=== PATIENT | female | born 1955 | race Caucasian/White ===

== ENCOUNTER → 2024-08-11 10:34 | Outpatient (REF) | payer MEDICARE, OTHER, SELFPAY | LOC: HWWDC 10:34 | DX: Z12.31 Encounter for screening mammogram for malignant neoplasm of breast (principal) | CPT/HCPCS: 77063; 77067 ==

== ENCOUNTER → 2024-08-18 08:42 | Outpatient (REF) | payer MEDICARE, OTHER, SELFPAY | LOC: WDC 08:42 | DX: R92.8 Other abnormal and inconclusive findings on diagnostic imaging of breast (principal) | CPT/HCPCS: 76642 ==

== ENCOUNTER → 2024-08-24 09:02 | Outpatient (REF) | payer MEDICARE, OTHER, SELFPAY ==
--- NOTE | 2024-08-24 13:15 | OID.BR.INTR ---
KAYLEIGHD Breast Navigator - Initial
- -
Date of Contact: 08/24/24
Met with patient. Patient given written information on navigator service available at [facility]. Will follow up as needed per protocol.
== END ==
LOC: WDC 09:02
DX: N63.10 Unspecified lump in the right breast, unspecified quadrant (principal); N63.11 Unspecified lump in the right breast, upper outer quadrant
CPT/HCPCS: 88305; 19083; 88341; 88360; A4648

== ENCOUNTER → 2024-09-10 07:45 | Outpatient (REF) | payer MEDICARE, OTHER, SELFPAY | LOC: WDC 07:45 | PROVIDERS: ATTENDING PHYSICIAN Surgery | DX: C50.411 Malignant neoplasm of upper-outer quadrant of right female breast (principal) | CPT/HCPCS: 19281; 76942; A4648 ==

== ENCOUNTER 2024-09-11 06:18 | Day surgery (SDC) | payer MEDICARE, OTHER, SELFPAY ==
[2024-09-02 13:04] VITALS: BMI 23.4
[2024-09-11 09:38] VITALS: BP 127/73; BMI 23.4
[2024-09-11] MEDS: TYLENOL 1000 MG PO (09:45)
[2024-09-11] MEDS: NORMOSOL-R/PLASMALYTE-A 1000 IV (09:50)
[2024-09-11] MEDS: LOVENOX 40 MG SC (12:04)
[2024-09-11 14:00] VITALS: BP 115/68
[2024-09-11 14:15] VITALS: BP 131/75
[2024-09-11 14:30] VITALS: BP 125/69
[2024-09-11 14:45] VITALS: BP 127/67
--- NOTE | 2024-09-24 07:49 | W.IMMPOSTOP ---
Surgical Immed Post Op Note
-
Primary Surgeon: Lalit
Assisting Surgeon: None
Pre-op Diagnosis: Right breast ca
Post-op Diagnosis: Right breast ca
Procedure Performed: Right localized lumpectomy and sentinel lymph node mapping and biopsy
Anesthesia Type: TIVA
Specimen / Cultures: Right lumpectomy, margins, sentinel nodes
Estimated Blood Loss: 4cc
Complications: None
Operative Findings: Neg nodes on frozen
--- NOTE | 2024-09-24 07:51 | OR.RPT ---
Operative Report
Operative Report
Date of surgery: 09/11/2024
Surgeon: Lalit
Procedure: Right localized lumpectomy and sentinel lymph node mapping and biopsy
Preop diagnosis: right breast carcinoma
Postop diagnosis: Right breast carcinoma
The patient is a 68-year-old female with image detected right breast carcinoma who presents for breast conservation surgery. On the day prior to the procedure she presented to the [facility] where she underwent Мария casino supervisor reflector
placement and technetium radiotracer injection. On the day of surgery she presented to same-day surgical services where she was prepped. She verified site and procedure DVT and antibiotic prophylaxis were provided.
Patient was taken to the operating room and in the supine position intravenous sedation was delivered. Right breast and axilla were prepped and draped in usual sterile fashion and all tissues were anesthetized with 1% lidocaine plain. Attention
was first turned to the axilla where a curvilinear incision was made inferior to the hairline overlying the area of highest external gamma count. Dissection was carried through clavipectoral fascia and using the neoprobe sentinel node packets were
encountered and excised. Feeding vessels were controlled with 3-0 silk tie and frozen section analysis of the nodes was negative. Hemostasis was verified Marcaine 0.5% plain was instilled and wound was closed using simple interrupted 3-0 plain on
deep intermediate and subcutaneous tissue and skin was closed with a running subcuticular 4-0 Monocryl.
Next attention was turned to the lumpectomy where a curvilinear incision was made in the appropriate area skin flaps were elevated and the Мария probe was used to localized the reflector signal. Wide lumpectomy was performed. Timeout the body was
noted and the specimen was oriented for the pathologist. Specimen radiography confirmed the presence of the reflector and clip within it. Additional margins were harvested for permanent analysis from the posterior, medial, superior, lateral,
inferior, and anterior dimensions. These were oriented as well.
This wound was closed in the same fashion as the axillary incision after Marcaine and hemoclips were applied. Sterile surgical glue and sterile compressive dressings were applied. All sponge needle and instrument counts were correct and patient
was transferred to same-day surgery in stable condition,
([id number])
Stratford Node Bx Breast Cancer
Stratford Node Bx Breast Cancer
Operation performed with curative intent: Yes
Tracer(s) to ID Stratford Nodes in Non-Neoadjuvant setting: Radioactive Tracer
Tracer(s) to ID Sentinal Nodes in the Neoadjuvant Setting: N/A
All nodes at end of dye-filled Lymphatic Channel removed: N/A
All Significantly Radioactive Nodes were removed: Yes
All Palpably Suspicious Nodes were Removed: Yes
Bx Proven Pos Nodes Marked Prior to Chemo ID'd & Removed: N/A
== END 2024-09-11 15:00 | disposition home or self-care (01) ==
LOC: SDS 06:18
PROVIDERS: ATTENDING PHYSICIAN Surgery
DX: C50.411 Malignant neoplasm of upper-outer quadrant of right female breast (principal)
CPT/HCPCS: 38525; 19301; 38900; 88305; 88307; 88332; 76098; 88331; 88342

== ENCOUNTER → 2024-10-12 11:11 | Outpatient (REF) | payer MEDICARE, OTHER, SELFPAY | LOC: HWRAD 11:11 | PROVIDERS: ATTENDING PHYSICIAN Internal Medicine Hematology & Oncology | DX: C50.919 Malignant neoplasm of unspecified site of unspecified female breast (principal) | CPT/HCPCS: 71046 ==

== ENCOUNTER → 2024-10-13 15:53 | Outpatient (REF) | payer MEDICARE, OTHER, SELFPAY | LOC: RCS 15:53 | PROVIDERS: ATTENDING PHYSICIAN Internal Medicine Hematology & Oncology | DX: C50.919 Malignant neoplasm of unspecified site of unspecified female breast (principal) | CPT/HCPCS: 93306; 93356 ==

== ENCOUNTER → 2024-10-14 11:30 | Outpatient (REF) | payer MEDICARE, OTHER, SELFPAY | LOC: HWRAD 11:30 | DX: E04.1 Nontoxic single thyroid nodule (principal) | CPT/HCPCS: 76536 ==

== ENCOUNTER 2024-10-27 06:40 | Day surgery (SDC) | payer MEDICARE, OTHER, SELFPAY ==
--- NOTE | 2024-10-27 08:49 | W.SUR.PREOP ---
Pre-Operative Surgical Note
-
I have examined this patient prior to the performance of the scheduled procedure.
The patient's condition is unchanged from the time of the current History and
Physical and the patient is able to undergo the scheduled procedure.
[2024-10-27] MEDS: NSS 1000 IV (08:51)
[2024-10-27 08:53] VITALS: BMI 25.1
[2024-10-27 08:56] VITALS: BP 139/71
[2024-10-27 10:31] VITALS: BP 109/62
[2024-10-27 10:45] VITALS: BP 114/53
--- NOTE | 2024-10-27 10:55 | W.IMMPOSTOP ---
Surgical Immed Post Op Note
-
Primary Surgeon: Lalit
Assisting Surgeon: None
Pre-op Diagnosis: Right breast carcinoma
Post-op Diagnosis: Same
Procedure Performed: Insertion left portacath
Anesthesia Type: TIVA
Specimen / Cultures: None
Estimated Blood Loss: 2cc
Complications: None
Operative Findings: None
--- NOTE | 2024-10-27 10:56 | OR.RPT ---
Operative Report
Operative Report
The patient is a 68-year-old female with HER2 positive right breast carcinoma who presents for left Port-A-Cath insertion for the administration of adjuvant chemotherapy
Date of surgery: 10/27/2024
Surgeon: Lalit
Pre-op diagnosis: Right breast carcinoma
Postop diagnosis: Same
Procedure insertion left Port-A-Cath
The patient was prepped in same-day surgical services suite. DVT and antibiotic prophylaxis as well as pre-emptive analgesia were provided. She was transported to the operating room and in Trendelenburg position with shoulder roll in place,
intravenous sedation was administered. The left chest and neck were prepped and draped in the usual sterile fashion. An appropriate timeout was performed by all staff members.
Tissues were anesthetized with 1% lidocaine plain. The left subclavian vein was entered percutaneously on the first attempt. The guidewire was advanced under fluoroscopic guidance into the superior vena cava and securely attached to the drapes
after the insertion needle was removed.
A subcutaneous pocket was fashioned sharply and with the cautery, inferior to the exit site of the wire. A single-lumen low-profile port flushed with heparinized saline was passed into the pocket and securely attached to the catheter. The catheter
was passed to the exit site of the guidewire. Under fluoroscopic guidance it was cut to a length of 21 cm. Under fluoroscopic guidance, the tract was dilated. Dilator and wire were removed and the catheter passed easily into the tear-away sheath
which was removed. Good position of the catheter tip in the superior vena cava was noted. The catheter aspirated and flushed well.
The patient was taken out of Trendelenburg position. Tissues were instilled with 0.5% Marcaine plain. The wound was closed using simple interrupted 3-0 plain on subcutaneous tissue and a running subcuticular 4 Monocryl was used on skin. Surgical
glue was applied. The port was accessed as the patient will be receiving her first treatment tomorrow. A sterile dressing was applied and the patient was transferred to same-day surgery where a stat portable chest x-ray will be obtained.
([id number])
[2024-10-27 11:00] VITALS: BP 108/68
== END 2024-10-27 11:41 | disposition home or self-care (01) ==
LOC: SDS 06:40
PROVIDERS: ATTENDING PHYSICIAN Surgery
DX: C50.911 Malignant neoplasm of unspecified site of right female breast (principal)
CPT/HCPCS: 36561; 71045; 76000; C1788

== ENCOUNTER → 2025-01-18 08:58 | Outpatient (REF) | payer MEDICARE, OTHER, SELFPAY | LOC: RCS 08:58 | PROVIDERS: ATTENDING PHYSICIAN Internal Medicine Cardiovascular Disease | DX: Z85.3 Personal history of malignant neoplasm of breast (principal); Z98.890 Other specified postprocedural states; I10 Essential (primary) hypertension; I70.0 Atherosclerosis of aorta | CPT/HCPCS: 93306; 93356 ==

== ENCOUNTER 2025-01-29 07:20 | Inpatient (IN) | payer MEDICARE, OTHER, SELFPAY ==
[2025-01-28] VITALS (7 sets, daily range): BP systolic 114–139; BP diastolic 61–104; BMI 26.2; BMI 26.1
--- NOTE | 2025-01-28 14:38 | ED.GENMED ---
History of Present Illness
<Yancy Farr NP - Last Filed: 01/28/25 22:24>
General
Chief Complaint: Fall
Source: patient
Exam Limitations: none
Time Seen by Provider: 01/28/25 14:10
Nursing documentation reviewed up to this point in time: agreed with
History of Present Illness
History of Present Illness:
Patient to ED after trip and fall in parking lot. SHe was at the infusion center earlier to receive a dose of herceptin. States after leaving the hospital she tripped on curb and fell forward. SHe states she hit her forehead on pavement. No LOC.
SHe was assisted by bystanders until staff intervened, rapid response called. SHe denies any episodes of dizziness or weakness. Incident occured just [employer]. She reports HALEY that started a few weeks ago. No leg pain or swelling, no history of DVT.
Denies any CP/pressure. SHe was sent for CXR by Dr. Au but fell before she could get to xray. On 3L NC presently. PUlse ox 95%
Past History
<Yancy Farr [employer] - Last Filed: 01/28/25 22:24>
Past History
ED Past Medical History: Cancer (breast) and HTN
Social History
Tobacco: Former smoker (1ppd, quit 08/2024)
Review of Systems
<Yancy Farr [employer] - Last Filed: 01/28/25 22:24>
Review of Systems
Allergies reviewed?: Yes
All Other Systems: ROS reviewed and negative except as documented in HPI and ROS
Constitutional: Reports no symptoms
EENT: Reports no symptoms
Respiratory: Reports trouble breathing (HALEY)
Cardiac: Reports no symptoms
ABD/GI: Reports no symptoms
: Reports no symptoms
Musculoskeletal: Reports no symptoms
Skin: Reports no symptoms
Neurological: Reports no symptoms
Psychiatric: Reports no symptoms
Phy Exam
<Yancy Farr [employer] - Last Filed: 01/28/25 22:24>
General Physical Exam
General Presentation: moderate distress
General age: appears stated age
General Skin: warm and dry
General Habitus: normal
General Mental: alert
Pulmonary Exam
Pulmonary Exam: chest non tender
Oxygen Status: oxygen 3 liters via NC (Pulse ox 95%)
Breath Sounds: Crackles: left lower and right lower
Gastrointestinal Exam
Gastrointestinal Exam: non tender and soft
Neurological Exam
Neurological Exam: alert, oriented x3, CN II-XII intact, no motor deficits, no sensory deficits and speech normal
Musculoskeletal Exam
Musculoskeletal Exam: full ROM and neuro vasc intact
Skin Exam
Skin Exam: normal color, warm/dry and no rash
Psychiatric Exam
Psychiatric Exam: normal mood/affect
Course
<Yancy Farr [employer] - Last Filed: 01/28/25 22:24>
Orders/Labs/Results
Orders:
Orders
01/28/25 13:58
Electrocardiogram (*1) Urgent
Reason for Study: Chest Pain
EKG- Treatment ONCE
01/28/25 14:54
Complete Blood Count/With Diff Urgent
Comprehensive Metabolic Panel Urgent
D-Dimer Urgent
NT-proBNP Urgent
Comment: ADD ON
01/28/25 15:28
0.9% Sodium Chloride 1000 ml [Nss] 1,000 ml IV BOLUS
01/28/25 15:30
CT Head W/o Iv Contrast Urgent
Comment:
Reason For Exam: trauma
01/28/25 15:31
CT Chest PE Study Urgent
Comment:
Reason For Exam: HALEY, breast CA
01/28/25 17:57
Add On- LAB Urgent
Tests Added?: BNP
Abnormal Lab Results
01/28/25
14:54
RBC 3.59 L 10^6/uL
(4.20-5.40)
Hgb 10.7 L g/dL
(12.0-16.0)
Hct 31.1 L %
(37.0-47.0)
RDW 15.7 H %
(11.5-14.5)
Abs Immat Gran (auto) 0.3 H 10^3/uL
(0-0.05)
Absolute Monos (auto) 1.2 H 10^3/uL
(0.1-0.6)
Immature Gran % 3.8 H %
(0-0.5)
Monocytes % 13.3 H %
(1.7-9.3)
D-Dimer 1.25 H ug/mlFEU
(0.00-0.50)
Sodium 128 L mmol/L
(135-145)
Chloride 97 L mmol/L
(98-107)
Creatinine 0.5 L mg/dL
(0.6-1.0)
Glucose 140 H mg/dl
(70-99)
Total Protein 5.4 L g/dl
(6.3-8.2)
Albumin 3.1 L g/dl
(3.5-5.0)
01/28/25 14:54
01/28/25 14:54
Vital Signs
Initial and Last Documented VS:
Initial Vital Signs
Temp Pulse Resp BP Pulse Ox
98.7 F 115 15 138/75 85
01/28/25 13:52 01/28/25 13:52 01/28/25 13:52 01/28/25 13:52 01/28/25 13:52
Last Documented Vital Signs
Temp Pulse Resp BP Pulse Ox
98.0 F 100 18 138/64 92
01/28/25 20:50 01/28/25 20:50 01/28/25 20:50 01/28/25 20:50 01/28/25 20:50
<Negrito Mercedes, DO - Last Filed: 01/28/25 18:12>
Orders/Labs/Results
Orders:
Orders
01/28/25 13:58
Electrocardiogram (*1) Urgent
Reason for Study: Chest Pain
EKG- Treatment ONCE
01/28/25 14:54
Complete Blood Count/With Diff Urgent
Comprehensive Metabolic Panel Urgent
D-Dimer Urgent
NT-proBNP Urgent
Comment: ADD ON
01/28/25 15:28
0.9% Sodium Chloride 1000 ml [Nss] 1,000 ml IV BOLUS
01/28/25 15:30
CT Head W/o Iv Contrast Urgent
Comment:
Reason For Exam: trauma
01/28/25 15:31
CT Chest PE Study Urgent
Comment:
Reason For Exam: HALEY, breast CA
01/28/25 17:57
Add On- LAB Urgent
Tests Added?: BNP
Abnormal Lab Results
01/28/25
14:54
RBC 3.59 L 10^6/uL
(4.20-5.40)
Hgb 10.7 L g/dL
(12.0-16.0)
Hct 31.1 L %
(37.0-47.0)
RDW 15.7 H %
(11.5-14.5)
Abs Immat Gran (auto) 0.3 H 10^3/uL
(0-0.05)
Absolute Monos (auto) 1.2 H 10^3/uL
(0.1-0.6)
Immature Gran % 3.8 H %
(0-0.5)
Monocytes % 13.3 H %
(1.7-9.3)
D-Dimer 1.25 H ug/mlFEU
(0.00-0.50)
Sodium 128 L mmol/L
(135-145)
Chloride 97 L mmol/L
(98-107)
Creatinine 0.5 L mg/dL
(0.6-1.0)
Glucose 140 H mg/dl
(70-99)
Total Protein 5.4 L g/dl
(6.3-8.2)
Albumin 3.1 L g/dl
(3.5-5.0)
01/28/25 14:54
01/28/25 14:54
Vital Signs
Initial and Last Documented VS:
Initial Vital Signs
Temp Pulse Resp BP Pulse Ox
98.7 F 115 15 138/75 85
01/28/25 13:52 01/28/25 13:52 01/28/25 13:52 01/28/25 13:52 01/28/25 13:52
Last Documented Vital Signs
Temp Pulse Resp BP Pulse Ox
98.0 F 100 18 138/64 92
01/28/25 20:50 01/28/25 20:50 01/28/25 20:50 01/28/25 20:50 01/28/25 20:50
<Yancy Farr NP - Last Filed: 01/28/25 22:24>
*Radiology
Radiology exam reviewed: radiology read reviewed
*Pulse Oximetry
SaO2: 98
Nasal Cannula flow liters per minute: 84
Oxygen Mode of Delivery: Room air
Patient hypoxic: yes
Comment: 88% RA
*Critical Care Note
Total Time (30-74mins, 75-104mins- exclusive of procedures): Not Applicable
<Yancy Farr NP - Last Filed: 01/28/25 22:24>
Update Note
Update Note:
Pulse ox 95% on 3L NC. no history of lung disease. Reports HALEY x 2 weeks. No chest pain, no leg swelling. Ddimer elevated at 1.2, will send for Chest CT PE study.
Na 128. SHe reports history of low Na levels. Last level here 34. Will add liter NSS.
Chest CT neg for PE. Pulmonary edema vs pneumonia. No history of pulmonary edema in her past. No weight gain, no edema. BNP is pending. Reports non productive cough over the past 2 weeks. WIll start antibiotic in ED for possible pneumonia. HALEY
with minimal activiey. WIll admit to hospitalist for HALEY, hypoxemia, pneumonia
ED Attending Note
<Yancy Farr NP - Last Filed: 01/28/25 22:24>
-
Portions of this chart may have been created with voice recognition software.� Occasional wrong word or��sound alike� substitutions may have occurred due to the inherent limitations of voice recognition software.
<Negrito Mercedes DO - Last Filed: 01/28/25 18:12>
ED Attending Note
Patient seen and examined by attending physician: Yes
I performed the substantive portion of visit, reviewed & personally made and approve the management plan that is documented in note by myself or WILBER.: Yes
ED Attending Note:
I evaluated the patient at bedside. The patient is hypoxic with sat of 84% on 3 L/min and I increased her to 5 L/min. She reports no weight gain. CTA chest shows no PE but there is extensive diffuse patchy airspace opacity. She has had a
cough�Will add antibiotics. BNP pending
Discharge Plan
Departure
Patient Disposition: Admit
Date of Disposition: 01/28/25
Time of Disposition: 18:06
Presentation/result/management discussed w/ accepting MD/DO: Hospitalist
Patient with high blood pressure during this ER visit?: No
Condition: Fair
Covid-19: Not Applicable
Discharge Problem:
HALEY (dyspnea on exertion), Hypoxemia, Pneumonia
Interventions
Interventions:
*Risk Screen - Suicide Last Done: 01/28/25 13:52
*General Assessment Last Done: 01/28/25 13:52
*Neglect/Abuse Screening Last Done: 01/28/25 13:52
*ED- Fall Risk Assessment Last Done: 01/28/25 13:52
*ED COVID-19 Vaccine History Last Done: 01/28/25 13:52
*ED Influenza Vaccine History Last Done: 01/28/25 13:52
*Nursing Disposition Last Done: 01/28/25 20:26
ED- Neurological Assessment Last Done: 01/28/25 14:18
Discharge Date and Time
Discharge Date/Time: 01/28/25 20:26
[2025-01-28 15:03] LABS: Hematocrit 31.1 % (37.0-47.0); Hemoglobin 10.7 g/dL (12.0-16.0); Mean Corp Hgb Conc. 34.4 g/dL (33.0-37.0); Mean Corpuscular Volume 86.6 fL (81.0-99.0); Nucleated Red Blood Cells % 0 %; Platelet Count 301 10^3/uL (130-400); Red Cell Dist. Width 15.7 % (11.5-14.5)
[2025-01-28 15:20] LABS: ALT (SGPT) 22 U/L (0-35); AST (SGOT) 26 U/L (14-36); Albumin 3.1 g/dl (3.5-5.0); Alkaline Phosphatase 105 U/L (38-126); Blood Urea Nitrogen 8 mg/dl (7-17); Calcium 8.4 mg/dl (8.4-10.2); Carbon Dioxide 28 mmol/L (22-30); Chloride 97 mmol/L (98-107); Estimated Creatinine Clearance 68 ml/min; Glucose 140 mg/dl (70-99); Potassium 3.5 mmol/L (3.5-5.1); Sodium 128 mmol/L (135-145); Total Protein 5.4 g/dl (6.3-8.2); eGFR > 60.00
[2025-01-28 15:26] LABS: D-Dimer 1.25 ug/mlFEU (0.00-0.50)
[2025-01-28] MEDS: NSS 1000 IV (15:35)
[2025-01-28] MEDS: ZITHROMAX INFUSION 250 IV (18:20)
[2025-01-28] MEDS: ROCEPHIN 1000 MG IV (18:23)
--- NOTE | 2025-01-28 18:33 | HPS.HSE ---
Family Physician
-
Family Physician: TRE Porras
Chief Complaint
-
shortness of breath
History of Present Illness
69-year-old female past medical history of breast cancer, hypertension presenting with fall. She tripped and fell in the parking lot. He was at the infusion center earlier to receive a dose of Herceptin. After leaving the hospital she tripped on
a curb and fell forward. She hit her forehead on pavement. Denies loss of consciousness. She was assisted by bystanders until staff intervened and rapid response was called. She denies any dizziness or weakness.
She reports shortness of breath started few weeks ago with nonproductive cough. Denies leg pain or swelling. Denies chest pain. Denies fevers or chills.
Medical History
Past Medical History
Past Medical History: Reports Other (breast cancer, hypertension)
Past Surgical History: Reports None
Social History
Tobacco: Former Smoker
Alcohol: None
Drug: None
Family History
Family History: Not pertinent
Allergies / Home Medications
Allergies reflects when Allergies were last updated in [facility].
Home Medications with original date entered in [facility]
Allergy/Medication List:
Allergies
Allergy/AdvReac Type Severity Reaction Status Date / Time
No Known Allergies Allergy Verified 10/27/24 08:50
Home Medications
Vitamin C 1 dose PO DAILY 09/04/24
Vitamin D3 1 dose PO DAILY 09/04/24
amlodipine 5 mg tablet 5 mg PO QPM 09/04/24
cyanocobalamin (vitamin B-12) 1 dose PO DAILY 09/04/24
lisinopril 20 mg-hydrochlorothiazide 25 mg tablet 1 tab PO QPM 09/04/24
magnesium 1 dose PO DAILY 09/04/24
naproxen sodium 220 mg tablet (Aleve) 220 mg PO BID PRN pain 09/04/24
vitamin K 1 dose PO DAILY 09/04/24
zinc 1 dose PO DAILY 09/04/24
Review of Systems
-
History Source: Patient
A 12 point ROS was completed and negative except as noted: Yes
Constitutional: Reports No Symptoms
EENT: Reports No Symptoms
Respiratory: Reports No Symptoms
Cardiac: Reports No Symptoms
Abdomen/GI: Reports No Symptoms
: Reports No Symptoms
Musculoskeletal: Reports No Symptoms
Skin: Reports No Symptoms
Neurological: Reports No Symptoms
Endocrine: Reports No Symptoms
Hematologic/Lymphatic: Reports No Symptoms
Psych: Reports No Symptoms
Physical Exam
Vital Signs
Vital Signs
Temp Pulse Resp BP Pulse Ox
98.7 F 92 16 118/95 94
01/28/25 13:52 01/28/25 18:15 01/28/25 18:15 01/28/25 18:00 01/28/25 18:15
Physical Exam
General: Well Developed, Well Nourished and No Apparent Distress
HEENT: NormoCephalic, Moist mucous membranes and Atraumatic
Respiratory: Clear
Cardiac: S1/S2 and Regular Rhythm; No Murmur or Rub
GI: Soft, Non Tender, Non Distended and Normal Bowel Sounds; No Organomegaly
Rectal: Deferred by Provider
Musculoskeletal: No Clubbing, No Cyanosis and No Edema
Skin: No Rash
Neuro: Nonfocal/grossly intact
Laboratory Results
-
01/28/25 14:54
01/28/25 14:54
Laboratory Results
Total Bilirubin 0.5 mg/dl (0.2-1.3) 01/28/25 14:54
AST 26 U/L (14-36) 01/28/25 14:54
ALT 22 U/L (0-35) 01/28/25 14:54
Alkaline Phosphatase 105 U/L (38-126) 01/28/25 14:54
Data Reviewed
-
Lab Data: Labs Reviewed by me
Old Records: Reviewed
Impression/Plan
-
IMPRESSION:
PLAN:
# Acute hypoxemic respiratory insufficiency secondary to likely pneumonia
-D-dimer 1.25
-CT PE shows no evidence of pulmonary embolism, trace pleural effusions, extensive diffuse patchy and confluent airspace opacity noted bilaterally representing pulm edema versus pneumonia, mild bilateral hilar and mediastinal adenopathy
-Check COVID and influenza
-IV fluids given
- Ceftriaxone/azithromycin
# Mechanical fall with head injury
- CT head shows no acute intracranial abnormality
Breast cancer
Essential hypertension
- Continue amlodipine, lisinopril/hydrochlorothiazide
DNR/DNI
DVT prophylaxis�heparin
Regular diet
[2025-01-28 19:23] LABS: COVID-19 Antigen Negative (Negative)
[2025-01-28] MEDS: HEPARIN 5000 UNITS SC (21:56)
[2025-01-29 05:43] LABS: Hematocrit 27.7 % (37.0-47.0); Hemoglobin 9.5 g/dL (12.0-16.0); Mean Corp Hgb Conc. 34.3 g/dL (33.0-37.0); Mean Corpuscular Volume 87.9 fL (81.0-99.0); Nucleated Red Blood Cells % 0 %; Platelet Count 274 10^3/uL (130-400); Red Cell Dist. Width 16.0 % (11.5-14.5)
[2025-01-29 05:44] VITALS: BMI 24.4
[2025-01-29 05:49] LABS: ALT (SGPT) 18 U/L (0-35); AST (SGOT) 25 U/L (14-36); Albumin 2.7 g/dl (3.5-5.0); Alkaline Phosphatase 81 U/L (38-126); Blood Urea Nitrogen 8 mg/dl (7-17); Calcium 8.2 mg/dl (8.4-10.2); Carbon Dioxide 26 mmol/L (22-30); Chloride 104 mmol/L (98-107); Estimated Creatinine Clearance 68 ml/min; Glucose 99 mg/dl (70-99); Potassium 4.4 mmol/L (3.5-5.1); Sodium 132 mmol/L (135-145); Total Protein 4.9 g/dl (6.3-8.2); eGFR > 60.00
[2025-01-29 07:35] VITALS: BP 103/66
--- NOTE | 2025-01-29 07:39 | W.PN.HOSP.TC ---
Addendum entered and electronically signed by Jerome Rosas MD 01/29/25 21:10:
Attending Addendum-
I saw and evaluated the patient. I reviewed the resident�s note and agree with findings and plan as documented in the resident�s note. Sub: continues to feel SOB at rest. Worse when oxygen turned down. No fevers chills cough. Full 12 point ROS
reviewed and negative except as documented Exam: Vitals reviewed in chart GEN-NAD heart RRR lungs fine crackles at bases abd soft LE no edema
# Acute hypoxemic respiratory insufficiency
-unclear etiology possibly related to taxol or herceptin
-h/o heavy tobacco abuse- likely underlying COPD lungs with limited reserve - eventual PFTs as OP
-CT PE shows no evidence of pulmonary embolism, trace pleural effusions, extensive diffuse patchy and confluent airspace opacity noted bilaterally representing pulm edema versus pneumonia, mild bilateral hilar and mediastinal adenopathy
-COVID and influenza-neg
-DC IVF, give IV lasix x 1 for possible pulm vasc congestion - recent echo 01/18-WNL
-Ceftriaxone/azithromycin x 1 dose given
-check proclal
-wean for o2 88-92%
# Mechanical fall with head injury
- CT head shows no acute intracranial abnormality
#Breast cancer- cont Herceptin, completed treatment with taxol 01/14
# H/O Heavy Tobacco Abuse
- quit 1 year ago
- PFT's as OP
#Essential hypertension
- Continue amlodipine, lisinopril/hydrochlorothiazide
# Hyponatremia-mild
- improving s/p IVF
DNR/DNI
DVT prophylaxis�heparin
Regular diet
ACP
Patient consented to discuss, was alone, time spent explanation of advance directives, changes in health status, patient�s health care wishes if the patient becomes unable to make health decisions, goals of care, code status, and prognosis, confirms
understanding of DNR status- 16 minutes
Time spent coordinating care, review of plan of care with resident, personally reviewed previous records in EMR, med rec, labs, radiology, d/w nursing, family total time documented is exclusive of any additional time listed that was spent in advance
care planning discussion - 51 minutes
Original Note:
Today's Communication/Plan
-
Goal to wean new O2 requirement with goal Oxygen saturation >92%
One time dose IV Lasix 20mg
Assessment / Plan
Assessment / Plan
Assessment:
This is a 69 y/o female with pmhx of invasive ductal carcinoma of the breast (ER/NE positive, HER-2 positive) on active treatment, essential hypertension who presented to the ED following a fall and was found to be hypoxic with a new 6L O2
requirement
Plan:
Acute Respiratory Failure
-Patient with shortness of breath for the last 1.5-2 weeks, nonproductive cough
-Patient on 6L of O2 as of this admission, no supplemental oxygen requirement at baseline
-CT Chest PE on 01/28: No evidence of pulmonary embolism. Trace pleural effusions. Extensive diffuse patchy and confluent airspace opacity noted, bilaterally, most pronounced in the upper and mid lung zones, with relative sparing at the lung bases.
Pulmonary edema versus pneumonia. Mild bilateral hilar and mediastinal adenopathy.
-Patient had recently completed Taxol therapy on 01/14, concern for chemotherapy-induced lung injury
-Suspect chemotherapy-related lung injury
-Goal to wean Oxygen as tolerated, keeping oxygen saturation > 92%
-Ordered 1 time dose of IV Lasix 20mg
-Will monitor
Breast Cancer
-Patient with new diagnosis of invasive ductal carcinoma of the breast (ER/NE positive, HER-2 positive) on active treatment
-Follows with Dr. Espinosa at [facility], reportedly finished Taxol therapy on 01/14 and is continuing with Herceptin alone with most recent Herceptin infusion on 01/28 just before ED visit
-Encouraged follow up with Dr. Espinosa upon discharge from the hospital
-Will monitor
S/p Fall with Head Strike
-CT of the Head showed no acute intracranial abnormality.
-No complaints today
Essential Hypertension
-Continue home medications of amlodipine, lisinopril/hydrochlorothiazide
-Will monitor
Anticipated Discharge: 24 - 48 hours
Subjective/Interval History
-
Date of Service: January 29, 2025
Patient reports she is a patient of Dr. Espinosa at [facility]. She was diagnosed with breast cancer around June or July 2024, and was started on Taxol/Herceptin x12 rounds. She completed her final course of this regimen on 01/14,
after which she was continued on Herceptin alone every 3 weeks. Around 1.5 weeks ago, she began to feel short of breath with exertion and would cough when doing things like climbing the stairs. She has been free of fevers, chills, chest pain, or
productive cough. Dr. Espinosa had ordered her a chest X-ray a few days ago as she was worried that her shortness of breath could be a side effect of her medications. In particular, patient reports being concerned about heart failure or pulmonary
fibrosis.
She had just finished receiving an infusion on 01/28 when she accidentally tripped over the curb. She was started on Oxygen in the ED, which is a new requirement for her. She has no past medical history aside from essential hypertension and breast
cancer.
Objective Data
-
Labs:
Laboratory Results
01/29/25
03:57
WBC 8.2
Hgb 9.5 L
Hct 27.7 L
Plt Count 274
Sodium 132 L
Potassium 4.4 D
Chloride 104
Carbon Dioxide 26
BUN 8
Creatinine 0.5 L
Glucose 99
Calcium 8.2 L
Total Bilirubin 0.5
AST 25
ALT 18
Alkaline Phosphatase 81
Vital Signs:
Vital Signs
Temp Pulse Resp BP Pulse Ox
98.0 F 100 18 138/64 92
01/28/25 20:50 01/28/25 20:50 01/28/25 20:50 01/28/25 20:50 01/28/25 21:00
Review of Systems
-
History Source: Patient
Constitutional: Denies Fever, No Appetite, Fatigue, Chills or Weakness
Respiratory: Reports Cough and Trouble Breathing; Denies Wheezing
Cardiac: Denies Chest Pain
Abdomen/GI: Denies Abdominal Pain, Nausea, Vomiting, Diarrhea or Constipated
Neuro: Denies Dizzy, Headache, Weakness or Numbness
Physical Exam
-
General: Well Developed, Well Nourished, No Apparent Distress and Comfortable
HEENT: Normocephalic, Atraumatic and Oxygen (6L )
Respiratory: Clear to Auscultation
Cardiac: Regular Rhythm and S1/S2
GI: Soft, Nontender, Nondistended and Normal Bowel Sounds
Skin: Warm and Dry
Neuro: Awake, Alert and Oriented
Psych: Calm and Intact Judgement/Insight
[2025-01-29] MEDS: HEPARIN 5000 UNITS SC ×2 (08:52→20:03)
[2025-01-29 09:21] LABS: Hepatitis C Antibody Negative (Negative)
[2025-01-29] MEDS: LASIX 20 MG IV (11:52)
[2025-01-29] MEDS: ANESTHETIC LOZENGE 1 LOZENGE PO ×2 (13:10→20:08)
--- NOTE | 2025-01-29 13:47 | CM ---
Reviewed the chart notes and spoke with the patient and spouse at the bedside. The patient resides with her spouse in a three story home with four steps to enter. The patient reports no DME/VN/SNF in the past. The patient confirmed her pharmacy
of choice [facility]. The patient is currently on supplemental O2. Hopefully will be able to wean from O2 prior to discharge. CM continues to be available to patient/family and is monitoring medical plan for needs at discharge.
Plan: Discharge to home when medically stable. If unable to wean O2 will need home O2 evaluation.
[2025-01-29 15:50] VITALS: BP 121/68
[2025-01-29 22:50] VITALS: BP 120/70
[2025-01-29 23:09] VITALS: BP 120/70
[2025-01-30 06:10] LABS: Hematocrit 28.7 % (37.0-47.0); Hemoglobin 9.5 g/dL (12.0-16.0); Mean Corp Hgb Conc. 33.1 g/dL (33.0-37.0); Mean Corpuscular Volume 87.0 fL (81.0-99.0); Platelet Count 258 10^3/uL (130-400); Red Cell Dist. Width 16.2 % (11.5-14.5)
[2025-01-30 06:31] LABS: Blood Urea Nitrogen 7 mg/dl (7-17); Calcium 8.3 mg/dl (8.4-10.2); Carbon Dioxide 30 mmol/L (22-30); Chloride 102 mmol/L (98-107); Estimated Creatinine Clearance 68 ml/min; Glucose 112 mg/dl (70-99); Potassium 4.0 mmol/L (3.5-5.1); Sodium 133 mmol/L (135-145); eGFR > 60.00
[2025-01-30 06:38] LABS: Procalcitonin < 0.05 ng/ml (0.0-0.25)
[2025-01-30 07:30] VITALS: BP 111/62
[2025-01-30] MEDS: HEPARIN 5000 UNITS SC (09:24)
--- NOTE | 2025-01-30 11:05 | W.PN.HOSP.TC ---
Today's Communication/Plan
-
Add antibiotics
1 dose of Lasix for noncardiogenic pulmonary edema-NOS
Will not resume hydrochlorothiazide
Follow labs
Oncology evaluation
Assessment / Plan
Assessment / Plan
69-year-old female with shortness of breath
CT chest-no PE. Trace pleural effusion. Extensive diffuse patchy and confluent airspace opacity bilaterally pronounced in the upper and midlung zones with relative sparing of the lung bases. Pulmonary edema versus pneumonia. Mild bilateral hilar
and mediastinal adenopathy.
Echo 01/19/2024-LV systolic function is normal. EF 60%. Mild concentric LVH.
CVS: S1-S2 normal
Chest: few rales bilaterally
Abdomen: Soft, NT / Bowel sounds present
Extremities: No edema.
# Acute hypoxic respiratory failure
DVT study-no PE patchy airspace opacity
Treat as pneumonia, COVID and influenza negative
Echo December 2024
Continue ceftriaxone/azithromycin
If hypoxia does not resolve will need treatment for COPD exacerbation with steroids.
Onc eval requested
Wean oxygen as tolerated
# Mechanical fall
Head CT without any acute changes
# Anemia-likely secondary to malignancy and treatment
# Hypertension-Hold amlodipine, lisinopril HCTZ.
# Hyponatremia-Stop HCTZ.
# History of tobacco use-quit a year ago
# Right breast cancer ER/MA/HER2-positive status post lumpectomy
Continue Herceptin
Completed Taxol treatment 01/14/2025
# Thyroid nodules-outpatient follow-up
# Hypoalbuminemia
# DVT prophylaxis-subcutaneous heparin
# DNR
Part of this note was created using voice recognition system. Occasional wrong word or��sound alike� substitutions may have inadvertently occurred due to the inherent limitations of voice recognition software. If noted kindly bring it to my
attention for correction.
Anticipated Discharge: 24 - 48 hours
Subjective/Interval History
-
Date of Service: January 30, 2025
Objective Data
-
Labs:
Laboratory Results
01/30/25
06:01
WBC 8.2
Hgb 9.5 L
Hct 28.7 L
Plt Count 258
Sodium 133 L
Potassium 4.0
Chloride 102
Carbon Dioxide 30
BUN 7
Creatinine 0.4 L
Glucose 112 H
Calcium 8.3 L
Vital Signs:
Vital Signs
Temp Pulse Resp BP Pulse Ox
98.0 F 90 16 111/62 98
01/30/25 07:30 01/30/25 07:30 01/30/25 07:30 01/30/25 07:30 01/30/25 07:30
I&O
01/29/25 01/30/25 01/31/25
06:59 06:59 06:59
Intake Total 1320 / 1320
Balance 1320 / 1320
[2025-01-30 12:20] LABS: Iron 35 ug/dl (37-170)
[2025-01-30 12:29] LABS: Total Iron Binding Capacity 265 ug/dl (265-497)
[2025-01-30 12:55] LABS: Ferritin 103.0 ng/ml (11.1-264.0)
[2025-01-30] MEDS: STERILE WATER FOR INJECTION 10 ML IV (13:00)
[2025-01-30] MEDS: LASIX 20 MG IV (13:00)
[2025-01-30] MEDS: ROCEPHIN 1000 MG IV (13:00)
[2025-01-30] MEDS: FLUSH (NSS) 2 FLUSH IV ×2 (13:01→13:34)
[2025-01-30] MEDS: ZITHROMAX 500 MG PO (13:06)
[2025-01-30 13:09] LABS: Vitamin B12 974 pg/ml (239-931)
--- NOTE | 2025-01-30 13:14 | CON.ONC ---
Consultation
-
Date Consultation Requested: 01/30/25
Date Consultation Performed: 01/30/25
Requesting Provider: Dr Wallis
Performing Provider: ema davila
Reason for Consultation: easry stage breast cancer on tx, hypoxia, HALEY
Impression
Impression
- bilateral lung infiltrates
- progressive HALEY with hypoxia
- c/f taxane induced pneumonitis
- TRIPLE positive breast cancer s/p taxol/trastuzumab x 12 cycles on 01/22
Plan
Plan
- clinical presentation and lung appearance on imaging suspicious for taxane induced pneumonitis. DDX bilateral PNA vs. CHF exacerbation however no fevers and non-toxic appearing, cough is non-productive, procalcitonin and BNP normal and so far
limited response to lasix. echo 01/18 without CM, normal EF and GLS.
- last dose of taxol 01/14.
- ordered methylpred 60 mg IV x 1 and will start prednisone 1 mg/kg (60 mg) daily tomorrow with taper once symptoms improved.
- continue empirical abx for now however can likely stop on discharge pending response to steroids, cx negative.
- wean O2 as tolerated.
- will continue to follow.
Patient History
History of Present Illness
Ms Rodriguez is a 69-year-old female past medical history of early stage TRIPLE POSITIVE breast cancer, hypertension who presented to ER after mechanical fall while stepping up on curb while leaving our office post- trastuzumab. The patient was actually
on her way to out-pt radiology for CXR ordered by her oncologist to assess new progressive HALEY x 1 week. She is currently receiving adjuvant systemic therapy for early stage breast cancer. She completed 12 cycles of weekly paclitaxel/trastuzumab
01/14 and continues on trastuzumab alone, received on saturday. vitals on arrival w/ HR 115 bpm, pulse ox 85% that came up with 3L NC. Chest imaging including CXR and CT chest revealed Extensive diffuse patchy and confluent airspace opacity noted,
bilaterally, most pronounced in the upper and mid lung zones, with relative sparing at the lung bases. no pe. She denies fevers, productive cough. she notes malaise that has been cumulative while receiving chemo. She has no hx of CHF. denies leg
swelling. echo on 01/18 (routine with HER2 therapy) with normal EF 60% with normal heart strain. BNP and procalcitonin in normal range. She was given dose of IV abx( azithro, ceftriaxone) and two doses of lasix 20 mg so far.
Past-Medical/Surgical History
Triple positive breast cancer
HTN
Patient Medication
�Medication �Instructions �Recorded �Confirmed �Last Taken �Type
Vitamin C 1 dose PO DAILY Supplement 09/04/24 01/28/25 10/23/24 History
Vitamin D3 1 dose PO DAILY Supplement 09/04/24 01/28/25 10/23/24 History
amlodipine 5 mg tablet 5 mg PO QPM Blood Pressure 09/04/24 01/28/25 10/26/24 History
cyanocobalamin (vitamin B-12) 1 dose PO DAILY Supplement 09/04/24 01/28/25 10/23/24 History
lisinopril 20 1 tab PO QPM Blood Pressure 09/04/24 01/28/25 10/26/24 History
mg-hydrochlorothiazide 25 mg tablet
magnesium 1 dose PO DAILY Supplement 09/04/24 01/28/25 10/23/24 History
naproxen sodium 220 mg tablet 220 mg PO BID PRN pain 09/04/24 01/28/25 10/22/24 History
(Aleve)
vitamin K 1 dose PO DAILY Supplement 09/04/24 01/28/25 10/23/24 History
zinc 1 dose PO DAILY Supplement 09/04/24 01/28/25 10/23/24 History
Active Medications
Generic Name Dose Route Start Last Admin
Trade Name Freq PRN Reason Stop Dose Admin
Acetaminophen 650 mg 01/28/25 20:37
Acetaminophen 325 Mg Tablet PO 02/25/25 20:36
Q4HPRN PRN
mild pain/RODGERS/temp> 100.4F
Azithromycin 500 mg 01/30/25 12:00
Azithromycin 250 Mg Tablet PO
DAILY SULMA
Benzocaine/Menthol 1 lozenge 01/29/25 12:22 01/29/25 20:08
Benzocaine/Menthol Lozenge PO 02/26/25 12:21 1 lozenge
Q4HPRN PRN Administration
Cough
Ceftriaxone Sodium 1,000 mg 01/30/25 12:00
Ceftriaxone 1000 Mg / 10 Ml Vial IV
Q24H SULMA
Enoxaparin Sodium 40 mg 01/30/25 18:00
Enoxaparin Sodium 40 Mg/0.4 Ml Syringe SC 02/27/25 17:59
QPM SULMA
Heparin Sodium (Porcine) 500 unit 01/29/25 12:00 01/29/25 13:10
Heparin Flush Pf (100 Unit/Ml) 5 Ml Syringe IV 02/26/25 11:59 500 unit
PER PROTOCOL PRN Administration
SUBCUTANEOUS PORT FLUSH
Methylprednisolone Sodium Succinate 60 mg 01/30/25 13:11
Methylprednisolone Pf 125 Mg/2 Ml Vial IV 01/30/25 13:12
NOW STA
Prednisone 60 mg 01/31/25 09:00
Prednisone 50 Mg Tablet PO 02/28/25 08:59
DAILY SULMA
Sodium Chloride 0 flush 01/28/25 21:00
Sodium Chloride 0.9% (Flush) Syringe IV 02/25/25 20:59
PER PROTOCOL SULMA
Sterile Water 10 ml 01/30/25 12:00
Sterile Water For Injection 10 Ml Vial IV 02/27/25 11:59
Q24H SULMA
Review of Systems
-
History Source: Patient
Constitutional: Reports Fatigue; Denies Fever, Weight Loss, Night Sweats or Weakness
EENT: Denies Sore Throat
Respiratory: Reports Cough (dry) and Trouble Breathing; Denies Hemoptysis or Pleurisy
Cardiac: Denies Chest Pain, Palpitations or Syncope
GI: Denies Nausea or Vomiting
Neuro: Denies Dizzy, Headache, Numbness, Ataxia or Lightheadedness
Physical Exam
-
General: Well Developed, Well Nourished and No Apparent Distress
HEENT: Negative Jaundice
Cardiology: Normal Sinus Rhythm; Negative Murmur
Pulmonary: Rales (fine on expiration bilateral lower lung mays ); Negative Wheezes or Rhonchi
Musculoskeletal: No Edema
Neurology: Non Focal and No Lateralizing Symptoms
Labs
Lab Results
WBC 8.2 10^3/uL (4.8-10.8) 01/30/25 06:01
RBC 3.30 10^6/uL (4.20-5.40) L 01/30/25 06:01
Hgb 9.5 g/dL (12.0-16.0) L 01/30/25 06:01
Hct 28.7 % (37.0-47.0) L 01/30/25 06:01
MCV 87.0 fL (81.0-99.0) 01/30/25 06:01
MCH 28.8 pg (27.0-31.0) 01/30/25 06:01
MCHC 33.1 g/dL (33.0-37.0) 01/30/25 06:01
RDW 16.2 % (11.5-14.5) H 01/30/25 06:01
Plt Count 258 10^3/uL (130-400) 01/30/25 06:01
MPV 9.9 fL (7.4-10.4) 01/30/25 06:01
Abs Immat Gran (auto) 0.2 10^3/uL (0-0.05) H 01/29/25 03:57
Absolute Neuts (auto) 5.2 10^3/uL (1.4-6.5) 01/29/25 03:57
Absolute Lymphs (auto) 1.4 10^3/uL (1.2-3.4) 01/29/25 03:57
Absolute Monos (auto) 1.2 10^3/uL (0.1-0.6) H 01/29/25 03:57
Absolute Eos (auto) 0.2 10^3/uL (0-0.7) 01/29/25 03:57
Absolute Basos (auto) 0.1 10^3/uL (0-0.2) 01/29/25 03:57
Immature Gran % 2.4 % (0-0.5) H 01/29/25 03:57
Neutrophils % 63.2 % (42.2-75.2) 01/29/25 03:57
Lymphocytes % 17.2 % (20.5-51.1) L 01/29/25 03:57
Monocytes % 14.4 % (1.7-9.3) H 01/29/25 03:57
Eosinophils % 1.8 % (0-6) 01/29/25 03:57
Basophils % 1.0 % (0-2) 01/29/25 03:57
Creatinine 0.4 mg/dL (0.6-1.0) L 01/30/25 06:01
Vital Signs
Vital Signs
Temp Pulse Resp BP Pulse Ox
98.0 F 90 16 111/62 98
01/30/25 07:30 01/30/25 07:30 01/30/25 07:30 01/30/25 07:30 01/30/25 07:30
[2025-01-30] MEDS: SOLU-MEDROL PF 60 MG IV (13:32)
[2025-01-30 15:30] VITALS: BP 120/75
[2025-01-30] MEDS: LOVENOX 40 MG SC (18:02)
[2025-01-30 23:00] VITALS: BP 108/58
[2025-01-31 03:23] LABS: Hematocrit 28.2 % (37.0-47.0); Hemoglobin 9.4 g/dL (12.0-16.0); Mean Corp Hgb Conc. 33.3 g/dL (33.0-37.0); Mean Corpuscular Volume 87.0 fL (81.0-99.0); Platelet Count 261 10^3/uL (130-400); Red Cell Dist. Width 15.9 % (11.5-14.5)
[2025-01-31 03:43] LABS: Blood Urea Nitrogen 7 mg/dl (7-17); Calcium 8.7 mg/dl (8.4-10.2); Carbon Dioxide 30 mmol/L (22-30); Chloride 101 mmol/L (98-107); Estimated Creatinine Clearance 68 ml/min; Glucose 214 mg/dl (70-99); Potassium 4.1 mmol/L (3.5-5.1); Sodium 133 mmol/L (135-145); eGFR > 60.00
[2025-01-31 07:00] VITALS: BP 125/66
[2025-01-31] MEDS: DELTASONE 60 MG PO (08:50)
[2025-01-31] MEDS: PROTONIX 40 MG PO (08:50)
[2025-01-31] MEDS: ZITHROMAX 500 MG PO (08:50)
--- NOTE | 2025-01-31 10:57 | W.PN.HOSP.TC ---
Addendum entered and electronically signed by Benedicto Wallis MD 01/31/25 13:00:
69-year-old female with shortness of breath
CT chest-no PE. Trace pleural effusion. Extensive diffuse patchy and confluent airspace opacity bilaterally pronounced in the upper and midlung zones with relative sparing of the lung bases. Pulmonary edema versus pneumonia. Mild bilateral hilar
and mediastinal adenopathy.
Echo 01/19/2024-LV systolic function is normal. EF 60%. Mild concentric LVH.
CVS: S1-S2 normal
Chest: few rales bilaterally
Abdomen: Soft, NT / Bowel sounds present
Extremities: No edema.
# Acute hypoxic respiratory failure
DVT study-no PE patchy airspace opacity
Treat as pneumonia, COVID and influenza negative
Echo December 2024
Continue ceftriaxone/azithromycin to treat pneumonia-bacterial pneumonia NOS
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
Onc eval appreciated
Off O2
# Mechanical fall
Head CT without any acute changes
# Right breast cancer ER/ME/HER-2 positive status post lumpectomy
Continue Herceptin
Completed Taxol treatment 01/14/2025
# Anemia-likely secondary to malignancy and treatment
# Hypertension-Hold amlodipine, lisinopril HCTZ.
# Hyponatremia-Stopped HCTZ.
# History of tobacco use-quit a year ago
# Thyroid nodules-outpatient follow-up
# Hypoalbuminemia
# DVT prophylaxis-Lovenox
# DNR
Part of this note was created using voice recognition system. Occasional wrong word or��sound alike� substitutions may have inadvertently occurred due to the inherent limitations of voice recognition software. If noted kindly bring it to my
attention for correction.
Original Note:
Today's Communication/Plan
-
Continue current antibiotics
60 mg prednisone with downward taper
DuoNebs given due to wheezing throughout both lung mays
Continue to wean O2 as tolerated -currently on 2 L nasal cannula
Home O2 eval ordered
Assessment / Plan
Assessment / Plan
Assessment:
This is a 69 y/o female with pmhx of invasive ductal carcinoma of the breast (ER/ME positive, HER-2 positive) on active treatment, essential hypertension who presented to the ED following a fall and was found to be hypoxic with a new 6L O2
requirement
Plan:
Acute Respiratory Failure
-Patient with shortness of breath for the last 1.5-2 weeks, nonproductive cough
-Patient on 6L of O2 as of this admission, no supplemental oxygen requirement at baseline
-CT Chest PE on 01/28: No evidence of pulmonary embolism. Trace pleural effusions. Extensive diffuse patchy and confluent airspace opacity noted, bilaterally, most pronounced in the upper and mid lung zones, with relative sparing at the lung bases.
Pulmonary edema versus pneumonia. Mild bilateral hilar and mediastinal adenopathy.
-Patient had recently completed Taxol therapy on 01/14, concern for chemotherapy-induced lung injury
-Suspect chemotherapy-related lung injury
-Goal to wean Oxygen as tolerated, keeping oxygen saturation > 92%
-Ordered 1 time dose of IV Lasix 20mg
-Appreciate oncology recommendations�they believe that the patient's presentation and imaging was suspicious for taxane induced pneumonitis. Last dose of Taxol was 01/14. Patient given methylprednisone 60 mg IV and will get an additional 60 mg
today with a downward taper
-Patiently currently at 2 L nasal cannula oxygen -we will continue to wean the patient down to room air as tolerated.
-DuoNebs given on 01/31/2025 for active wheezing throughout both lung mays
-Continue ceftriaxone/azithromycin -oncology recommends continuing empirical antibiotics but can likely stop on discharge pending response to steroids and if chest x-ray is negative
-Home O2 eval ordered
Right breast cancer ER/ME/HER2 positive status postlumpectomy: Stable/monitoring
-Patient with new diagnosis of invasive ductal carcinoma of the breast (ER/ME positive, HER-2 positive) on active treatment
-Follows with Dr. Espinosa at [facility], reportedly finished Taxol therapy on 01/14 and is continuing with Herceptin alone with most recent Herceptin infusion on 01/28 just before ED visit
-Encouraged follow up with Dr. Espinosa upon discharge from the hospital
S/p Mechanical Fall with Head Strike
-CT of the Head showed no acute intracranial abnormality.
-No complaints today
Essential Hypertension
-Amlodipine, lisinopril/hydrochlorothiazide held
-Will monitor
Anemia: Monitoring
� Likely secondary to malignancy and treatment
Hyponatremia: Monitoring/stable
�Hydrochlorothiazide held due to hyponatremia
History of tobacco use/nicotine dependence: Monitoring
� Patient quit smoking a year ago
� Counseling in regards to continued abstinence from smoking provided at the bedside
Thyroid nodules: Stable/monitoring
� Outpatient follow-up
Hypoalbuminemia: Stable/monitoring
Patient's albumin on 01/28/2025 was 3.1, and on 01/29/2025 the patient's albumin was 2.7 -Will continue to monitor
No current indication to replete
CODE STATUS: DO NOT RESUSCITATE
DVT prophylaxis: Heparin subqu
Anticipated Discharge: 24 - 48 hours
Subjective/Interval History
-
Date of Service: January 31, 2025
Met with patient at the bedside. Overall she believes that she is doing better than she did the day prior. She is aware that she has been weaned down to 2 L nasal cannula oxygen and she feels that she is stable on that amount of oxygen. She does
not usually need supplemental oxygen and would like to be returned back to her baseline. 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 I
recommended that the patient be cautious and allow staff to monitor any weaning to avoid any unfavorable outcomes.
Objective Data
-
Labs:
Laboratory Results
01/31/25
03:11
WBC 8.4
Hgb 9.4 L
Hct 28.2 L
Plt Count 261
Sodium 133 L
Potassium 4.1
Chloride 101
Carbon Dioxide 30
BUN 7
Creatinine 0.4 L
Glucose 214 H
Calcium 8.7
Vital Signs:
Vital Signs
Temp Pulse Resp BP Pulse Ox
98 F 78 20 125/66 98
01/31/25 07:00 01/31/25 07:00 01/31/25 07:00 01/31/25 07:00 01/31/25 07:00
I&O
01/30/25 01/31/25 02/01/25
06:59 06:59 06:59
Intake Total 1320 / 1320 720 / 720
Balance 1320 / 1320 720 / 720
Review of Systems
-
History Source: Patient
Constitutional: Denies Fever, No Appetite, Fatigue, Chills or Weakness
Respiratory: Reports Cough and Trouble Breathing; Denies Wheezing
Cardiac: Denies Chest Pain
Abdomen/GI: Denies Abdominal Pain, Nausea, Vomiting, Diarrhea or Constipated
Neuro: Denies Dizzy, Headache, Weakness or Numbness
Physical Exam
-
General: Well Developed, Well Nourished, No Apparent Distress and Comfortable
HEENT: Normocephalic, Atraumatic and Oxygen (6L )
Respiratory: Wheezes (Bilaterally throughout both lung mays most pronounced on the left side)
Cardiac: Regular Rhythm and S1/S2
GI: Soft, Nontender, Nondistended and Normal Bowel Sounds
Skin: Warm and Dry
Neuro: Awake, Alert and Oriented
Psych: Calm and Intact Judgement/Insight
[2025-01-31] MEDS: STERILE WATER FOR INJECTION 10 ML IV (11:43)
[2025-01-31] MEDS: ROCEPHIN 1000 MG IV (11:44)
[2025-01-31] MEDS: FLUSH (NSS) 2 FLUSH IV (11:45)
[2025-01-31 12:35] LABS: Glycohemoglobin (HgbA1c) 7.1 % (4.0-5.6)
--- NOTE | 2025-01-31 13:31 | W.PN.ONC2 ---
Today's Communication / Plan
-
- still requiring 2L NC.
- continue prednisone 60 mg daily.
- empirical abx
Impression
Impression
- bilateral lung infiltrates
- progressive HALEY with hypoxia
- c/f taxane induced pneumonitis
- TRIPLE positive breast cancer s/p taxol/trastuzumab x 12 cycles on 01/22
Plan
Plan
- clinical presentation and lung appearance on imaging suspicious for taxane induced pneumonitis. DDX bilateral PNA vs. CHF exacerbation however no fevers and non-toxic appearing, cough is non-productive, procalcitonin and BNP normal and so far
limited response to lasix. echo 01/18 without CM, normal EF and GLS.
- last dose of taxol 01/14.
- received methylpred 60 mg IV x 1 on 01/30 and started prednisone 1 mg/kg (60 mg) daily today with plan for taper once symptoms improved. Continue Prednisone 60 mg daily.
- continue empirical abx for now however can likely stop on discharge pending response to steroids, cx negative.
- wean O2 as tolerated.
- will continue to follow.
Subjective/Objective
Chief Complaint
SOB, hypoxia c/f chemo induced pneumonitis
Subjective
Salima has no new complaints. she remains on 2L NC. She tells me they took O2 off and pulse ox dropped into 70s after an hour. continues to deny fevers, productive cough.
Vital Signs:
Vital Signs
Temp Pulse Resp BP Pulse Ox
98 F 78 20 125/66 95
01/31/25 07:00 01/31/25 07:00 01/31/25 07:00 01/31/25 07:00 01/31/25 08:00
Lab Results:
Laboratory Data
WBC 8.4 10^3/uL (4.8-10.8) 01/31/25 03:11
Hgb 9.4 g/dL (12.0-16.0) L 10/05/25 03:11
Plt Count 261 10^3/uL (130-400) 01/31/25 03:11
eGFR > 60.00 01/31/25 03:11
Physical Exam
HEENT: No Jaundice
Pulmonary: Other (remains on 2L NC. no respiratory distress )
Extremities: No Edema
Neuro: Non Focal
Review of Systems
Review of Systems
Constitutional: Denies Fever
Respiratory: Reports Dyspnea and Cough
Cardiovascular: Denies Chest Pain
Orders
Orders
Orders From Last 24 Hours
01/30/25 13:19
MethylPREDNISolone PF [Solu-Medrol Pf] 60 mg IV NOW STA
01/31/25 08:00
Pantoprazole [Protonix] 40 mg PO DAILY
Prednisone [Deltasone] 60 mg PO DAILY
[2025-01-31 15:00] VITALS: BP 115/65
[2025-01-31] MEDS: LOVENOX 40 MG SC (18:18)
[2025-01-31 23:11] VITALS: BP 120/71
[2025-02-01 05:47] LABS: Hematocrit 29.6 % (37.0-47.0); Hemoglobin 9.5 g/dL (12.0-16.0); Mean Corp Hgb Conc. 32.1 g/dL (33.0-37.0); Mean Corpuscular Volume 88.6 fL (81.0-99.0); Platelet Count 275 10^3/uL (130-400); Red Cell Dist. Width 16.0 % (11.5-14.5)
[2025-02-01 06:05] LABS: ALT (SGPT) 18 U/L (0-35); AST (SGOT) 17 U/L (14-36); Albumin 2.9 g/dl (3.5-5.0); Alkaline Phosphatase 80 U/L (38-126); Blood Urea Nitrogen 9 mg/dl (7-17); Calcium 8.7 mg/dl (8.4-10.2); Carbon Dioxide 30 mmol/L (22-30); Chloride 104 mmol/L (98-107); Estimated Creatinine Clearance 68 ml/min; Glucose 126 mg/dl (70-99); Potassium 3.9 mmol/L (3.5-5.1); Sodium 137 mmol/L (135-145); Total Protein 5.3 g/dl (6.3-8.2); eGFR > 60.00
[2025-02-01 07:35] VITALS: BP 122/76
--- NOTE | 2025-02-01 07:51 | W.PN.HOSP.TC ---
Addendum entered and electronically signed by Benedicto Wallis MD 02/01/25 13:53:
Seen and examined the patient with the resident. Agree with the plan formulated. See changes in my documentation
69-year-old female with shortness of breath
CT chest-no PE. Trace pleural effusion. Extensive diffuse patchy and confluent airspace opacity bilaterally pronounced in the upper and midlung zones with relative sparing of the lung bases. Pulmonary edema versus pneumonia. Mild bilateral hilar
and mediastinal adenopathy.
Echo 01/19/2024-LV systolic function is normal. EF 60%. Mild concentric LVH.
CVS: S1-S2 normal
Chest: few rales bilaterally
Abdomen: Soft, NT / Bowel sounds present
Extremities: No edema.
# Acute hypoxic respiratory failure
DVT study-no PE patchy airspace opacity
Treat as pneumonia, COVID and influenza negative
Echo December 2024
Continue ceftriaxone/azithromycin to treat pneumonia-bacterial pneumonia NOS
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
Onc eval appreciated
Currently on 2 L of oxygen
Pulmonary consulted
Nebulizer treatments added
# Mechanical fall
Head CT without any acute changes
# Right breast cancer ER/CO/HER-2 positive status post lumpectomy
Continue Herceptin
Completed Taxol treatment 01/14/2025
# Anemia-likely secondary to malignancy and treatment
# Hypertension-Hold amlodipine, lisinopril HCTZ. Blood pressure stable
# Hyponatremia-Stopped HCTZ.
# History of tobacco use-quit a year ago
# Thyroid nodules-outpatient follow-up
# Hypoalbuminemia
# DVT prophylaxis-Lovenox
# DNR
Discussed with at bedside
Discussed with oncology
Part of this note was created using voice recognition system. Occasional wrong word or��sound alike� substitutions may have inadvertently occurred due to the inherent limitations of voice recognition software. If noted kindly bring it to my
attention for correction.
Original Note:
Today's Communication/Plan
-
Continue to wean O2
DuoNebs QID scheduled
Assessment / Plan
Assessment / Plan
Assessment:
This is a 69 y/o female with pmhx of invasive ductal carcinoma of the breast (ER/CO positive, HER-2 positive) on active treatment, essential hypertension who presented to the ED following a fall and was found to be hypoxic with a new 6L O2
requirement
Plan:
Acute Respiratory Failure
-Patient with shortness of breath for the last 1.5-2 weeks, nonproductive cough
-Patient on 6L of O2 as of this admission, no supplemental oxygen requirement at baseline
-CT Chest PE on 01/28: No evidence of pulmonary embolism. Trace pleural effusions. Extensive diffuse patchy and confluent airspace opacity noted, bilaterally, most pronounced in the upper and mid lung zones, with relative sparing at the lung bases.
Pulmonary edema versus pneumonia. Mild bilateral hilar and mediastinal adenopathy.
-Patient had recently completed Taxol therapy on 01/14, concern for chemotherapy-induced lung injury
-Suspect chemotherapy-related lung injury
-Goal to wean Oxygen as tolerated, keeping oxygen saturation > 92%
-S/p IV Lasix 20mg
-Appreciate oncology recommendations�they believe that the patient's presentation and imaging was suspicious for taxane induced pneumonitis. Last dose of Taxol was 01/14. Patient given methylprednisone 60 mg IV x2 and is now on prednisone 60mg
daily with plan to taper upon discharge. They have also consulted pulmonology, will appreciate their insight into her case
-Patiently currently at 2 L nasal cannula oxygen -we will continue to wean the patient down to room air as tolerated.
-Ordered scheduled QID DuoNebs
-Ordered X-ray
-Continue Ceftriaxone/Azithromycin. May potentially stop on D/c pending X-ray results
-Case management aware of new O2 requirement, DME is being ordered today
Right breast cancer ER/CO/HER2 positive status postlumpectomy: Stable/monitoring
-Patient with new diagnosis of invasive ductal carcinoma of the breast (ER/CO positive, HER-2 positive) on active treatment
-Follows with Dr. Espinosa at [facility], reportedly finished Taxol therapy on 01/14 and is continuing with Herceptin alone with most recent Herceptin infusion on 01/28 just before ED visit
-Encouraged follow up with Dr. Espinosa upon discharge from the hospital
-Oncology is following, appreciate their insight into her case
S/p Mechanical Fall with Head Strike
-CT of the Head showed no acute intracranial abnormality.
-No complaints today
Essential Hypertension
-Amlodipine, lisinopril/hydrochlorothiazide held
-Will monitor
Anemia: Monitoring
� Likely secondary to malignancy and treatment
Hyponatremia: Resolved
-Sodium normalized today
History of tobacco use/nicotine dependence: Monitoring
� Patient quit smoking in 08/2024
� Counseling in regards to continued abstinence from smoking provided at the bedside
Thyroid nodules: Stable/monitoring
� Outpatient follow-up
Hypoalbuminemia: Stable/monitoring
Patient's albumin on 01/28/2025 was 3.1, and on 01/29/2025 the patient's albumin was 2.7 -Will continue to monitor
No current indication to replete
CODE STATUS: DO NOT RESUSCITATE
DVT prophylaxis: Heparin subqu
Anticipated Discharge: Within 24 hours
Subjective/Interval History
-
Date of Service: February 01, 2025
Patient was resting comfortably in her bed when I arrived. She states she has been trying to get up and ambulate, but has not been able to successfully wean of 2L of O2. She states yesterday when she tried, after sitting in her chair for 1 hour
without supplemental oxygen the nurse checked her pulse ox and her % saturation had dropped to 77. She is worried about her course thus far, and that she may require supplemental oxygen indefinitely. She does report feeling somewhat labored breaths
even at baseline.
Objective Data
-
Labs:
Laboratory Results
02/01/25
05:18
WBC 12.7 H
Hgb 9.5 L
Hct 29.6 L
Plt Count 275
Sodium 137
Potassium 3.9
Chloride 104
Carbon Dioxide 30
BUN 9
Creatinine 0.4 L
Glucose 126 H
Calcium 8.7
Total Bilirubin < 0.1 L
AST 17
ALT 18
Alkaline Phosphatase 80
Vital Signs:
Vital Signs
Temp Pulse Resp BP Pulse Ox
98.3 F 83 17 120/71 96
01/31/25 23:11 01/31/25 23:11 01/31/25 23:11 01/31/25 23:11 02/01/25 00:36
I&O
01/31/25 02/01/25 02/02/25
06:59 06:59 06:59
Intake Total 720 / 720 1800 / 1800
Balance 720 / 720 1800 / 1800
Review of Systems
-
History Source: Patient
Constitutional: Denies Fever, Fatigue or Chills
Respiratory: Reports Cough (Dry) and Trouble Breathing
Cardiac: Denies Chest Pain or Palpitations
Abdomen/GI: Denies Abdominal Pain, Nausea, Vomiting, Diarrhea or Constipated
Physical Exam
-
General: Well Developed, Well Nourished, No Apparent Distress and Comfortable
HEENT: Normocephalic, Atraumatic and Oxygen (2L)
Respiratory: Crackles (Primarily at the bases bilaterally)
Cardiac: Regular Rhythm and S1/S2
GI: Soft and Nontender
Musculoskeletal: No Edema
Skin: Warm and Dry
Neuro: Awake, Alert and Oriented
Psych: Calm
--- NOTE | 2025-02-01 08:27 | W.PN.ONC2 ---
Today's Communication / Plan
-
.
Impression
Impression
- bilateral lung infiltrates
- progressive HALEY with hypoxia
- c/f taxane induced pneumonitis
- TRIPLE positive breast cancer s/p taxol/trastuzumab x 12 cycles on 01/22
Plan
Plan
- clinical presentation and lung appearance on imaging suspicious for taxane induced pneumonitis. DDX bilateral PNA vs. CHF exacerbation however no fevers and non-toxic appearing, cough is non-productive, procalcitonin and BNP normal and so far
limited response to lasix. echo 01/18 without CM, normal EF and GLS.
- last dose of taxol 01/14.
- received methylpred 60 mg IV x 1 on 01/30 and started prednisone 1 mg/kg (60 mg) daily today with plan for taper once symptoms improved. Continue Prednisone 60 mg daily.
- on empirical abx, cx negative.
- wean O2 as tolerated.
- will continue to follow.
Subjective/Objective
Subjective
afebrile, 2L NC
Vital Signs:
Vital Signs
Temp Pulse Resp BP Pulse Ox
97.7 F 86 18 122/76 94
02/01/25 07:35 02/01/25 07:35 02/01/25 07:35 02/01/25 07:35 02/01/25 07:35
Lab Results:
Laboratory Data
WBC 12.7 10^3/uL (4.8-10.8) H 02/01/25 05:18
Hgb 9.5 g/dL (12.0-16.0) L 02/01/25 05:18
Plt Count 275 10^3/uL (130-400) 02/01/25 05:18
eGFR > 60.00 02/01/25 05:18
Physical Exam
HEENT: Moist Mucous Membranes; No Jaundice
Pulmonary: Other (unlabored)
GI: Soft
Extremities: Pulses Present
[2025-02-01] MEDS: ZITHROMAX 500 MG PO (08:36)
[2025-02-01] MEDS: PROTONIX 40 MG PO (08:36)
[2025-02-01] MEDS: DELTASONE 60 MG PO (08:37)
--- NOTE | 2025-02-01 10:17 | CM ---
Reviewed the chart notes and spoke with the patient and spouse at the bedside. Patient continues with supplemental O2. Discussed VN services, but the patient declined. Patient is able to ambulate ad vance in room with no problem. CM continues to
be available to patient/family and is monitoring medical plan for needs at discharge.
Plan: Discharge to home when medically stable. If unable to wean off O2, home O2 evaluation will be needed.
[2025-02-01] MEDS: STERILE WATER FOR INJECTION 10 ML IV (11:02)
[2025-02-01] MEDS: ROCEPHIN 1000 MG IV (11:02)
[2025-02-01] MEDS: DUONEB 3 ML INH ×3 (12:37→20:12)
--- NOTE | 2025-02-01 14:24 | CON.PUL ---
Consultation
Consultation Request
Date/Time Consultation Requested: 02/01/25
Date/Time Consultation Performed: 02/01/25
Performing Provider: Xiomy
Reason for Consultation: Pneumonitis
Medical History
-
History of Present Illness:
69-year-old female past medical history of breast cancer on taxol/trastuzumab, hypertension presenting with fall. She tripped and fell in the parking lot. He was at the infusion center earlier to receive a dose of Herceptin. After leaving the
hospital she tripped on a curb and fell forward. She hit her forehead on pavement. Denies loss of consciousness. She was assisted by bystanders until staff intervened and rapid response was called. She denies any dizziness or weakness. She
reports shortness of breath started few weeks ago with nonproductive cough. CXR/CT obtained with interstitial markings noted, suspect drug-induced pneumonitis.
Past Medical History
Past Medical History: Other (see list below)
Social History
Tobacco: Non-smoker
Alcohol: None
Drug: None
Family History
Family History: Reviewed & Not Pertinent
Allergies / Home Medications
Allergies
Allergy/AdvReac Type Severity Reaction Status Date / Time
No Known Allergies Allergy Verified 10/27/24 08:50
Home Medications
�Medication �Instructions �Recorded �Confirmed �Last Taken �Type
Vitamin C 1 dose PO DAILY Supplement 09/04/24 01/28/25 10/23/24 History
Vitamin D3 1 dose PO DAILY Supplement 09/04/24 01/28/25 10/23/24 History
amlodipine 5 mg tablet 5 mg PO QPM Blood Pressure 09/04/24 01/28/25 10/26/24 History
cyanocobalamin (vitamin B-12) 1 dose PO DAILY Supplement 09/04/24 01/28/25 10/23/24 History
lisinopril 20 1 tab PO QPM Blood Pressure 09/04/24 01/28/25 10/26/24 History
mg-hydrochlorothiazide 25 mg tablet
magnesium 1 dose PO DAILY Supplement 09/04/24 01/28/25 10/23/24 History
naproxen sodium 220 mg tablet 220 mg PO BID PRN pain 09/04/24 01/28/25 10/22/24 History
(Aleve)
vitamin K 1 dose PO DAILY Supplement 09/04/24 01/28/25 10/23/24 History
zinc 1 dose PO DAILY Supplement 09/04/24 01/28/25 10/23/24 History
Review of Systems
-
History Source: Patient
All other systems: Negative unless noted
Vitals / Labs / Diagnostic Testing
Vital Signs
Temp Pulse Resp BP Pulse Ox
97.7 F 95 16 122/76 92
02/01/25 07:35 02/01/25 12:40 02/01/25 12:40 02/01/25 07:35 02/01/25 12:40
Lab Data
02/01/25 05:18
02/01/25 05:18
Diagnostic Testing:
Physical Exam
-
HEENT: Normocephalic, Anicteric and Moist Mucous Membranes
Cardiovascular: S1/S2 and Regular Rhythm
Respiratory: Rales and Non-Labored Respirations
GI: Soft, Non Distended and Non Tender
Neurology: Awake, Alert, Oriented, No Motor Deficits and Tremors (slight)
Skin: Warm, Dry and Good Color
General: Comfortable and Other (NAD)
Assessment
-
69-year-old female past medical history of breast cancer on taxol/trastuzumab, hypertension presenting with fall. She tripped and fell in the parking lot. He was at the infusion center earlier to receive a dose of Herceptin. After leaving the
hospital she tripped on a curb and fell forward. She hit her forehead on pavement. Denies loss of consciousness. She was assisted by bystanders until staff intervened and rapid response was called. She denies any dizziness or weakness. She
reports shortness of breath started few weeks ago with nonproductive cough. CXR/CT obtained with interstitial markings noted, suspect drug-induced pneumonitis.
Drug induced pneumonitis
Abnormal CT chest
Breast cancer
HALEY-progressive
Anemia, Hb 9.5
Hyperglycemia
Impaired fasting glucose
Right breast IDC ER/MA+ HER2+ 2024
US guided Right breast biopsy 08/18/24
Right localized lumpectomy SLN mapping and biopsy 09/11/24
Left port insertion 10/27/24
Hypertension
[facility]
Prediabetes
Thyroid nodule, stable on US 09/2024 (unchanged since 2016)
Vitamin D deficiency
Former smoker, quit 08/2024
Osteoporosis
Cologuard in 2017 was positive, declined colonoscopy (never had)
Plan
No oxygen was needed on admission, currently saturating >90% on RA
Prior history of lung disease is NOT noted --denies prior history
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
I reviewed this with patient
PCT negative
proBNP 142
CXR/CT obtained indicating bilateral symmetric GGOs, pleural sparing
Started on prednisone, continue for now
Eventually will need repeat imaging again in 6 weeks as OP
Prior ECHO results are reviewed indicating normal function
Unlikely HF contributing
She has stopped chemo in the past 2 weeks
Would recommend stopping as well
Heme following
Will need outpatient pulmonary evaluation in our office for PFTs and 6MWT
Reviewed with patient
We will follow
Diagnostic Data
Chest X-Ray: 02/01/25- Stable pulmonary changes again concerning for pulmonary edema versus pneumonia.
10/27/24- No focal parenchymal opacification, pleural effusion or pneumothorax.
CT Scan: CHEST 01/28/25- Extensive diffuse patchy and confluent airspace opacity noted, bilaterally, most pronounced in the upper and mid lung zones, with relative sparing at the lung bases.
Echo: 01/18/25- 1. Left ventricular ejection fraction is normal with an ejection fraction of 60 % by Sr's biplane method of discs.
2. Compared to a prior transthoracic echocardiogram study from 10/13/2024 Global strain was -21.1% from prior study and is -20.5% on current study no significant changes are seen.
3. Global strain -20.5%.
4. Mild concentric left ventricular hypertrophy.
PFT's:
Reports and relevant images were personally reviewed.
Total time spent on this consultation __55__ minutes which includes review of history, physical exam, medications, laboratory data, personal review of imaging, extensive review of outpatient records, discussion with care team and respiratory therapy.
[2025-02-01 15:10] VITALS: BP 118/66
[2025-02-01] MEDS: LOVENOX 40 MG SC (17:09)
[2025-02-01 23:21] VITALS: BP 118/61
[2025-02-02 05:07] LABS: Hematocrit 27.3 % (37.0-47.0); Hemoglobin 9.1 g/dL (12.0-16.0); Mean Corp Hgb Conc. 33.3 g/dL (33.0-37.0); Mean Corpuscular Volume 90.1 fL (81.0-99.0); Platelet Count 271 10^3/uL (130-400); Red Cell Dist. Width 16.3 % (11.5-14.5)
[2025-02-02 05:30] LABS: Blood Urea Nitrogen 10 mg/dl (7-17); Calcium 8.8 mg/dl (8.4-10.2); Carbon Dioxide 28 mmol/L (22-30); Chloride 105 mmol/L (98-107); Estimated Creatinine Clearance 68 ml/min; Glucose 124 mg/dl (70-99); Potassium 3.6 mmol/L (3.5-5.1); Sodium 137 mmol/L (135-145); eGFR > 60.00
[2025-02-02 07:00] VITALS: BP 118/65
--- NOTE | 2025-02-02 07:15 | W.PN.HOSP.TC ---
Addendum entered and electronically signed by Benedicto Wallis MD 02/02/25 16:00:
I saw and evaluated the patient. I reviewed the resident�s note and agree with findings and plan as documented in the resident�s note.
Pt feels better, but not totally improved.
Chest exam with rales
Home O2 set up to be delivered tomorrow
D/W Pulm
D/W a bed side
Original Note:
Today's Communication/Plan
-
Home O2 Assessment
Continue DuoNebs
Continue to wean O2 as tolerated
Tentative plan to D/c to home tomorrow with Home O2
Assessment / Plan
Assessment / Plan
Assessment:
This is a 69 y/o female with pmhx of invasive ductal carcinoma of the breast (ER/MN positive, HER-2 positive) on active treatment, essential hypertension who presented to the ED following a fall and was found to be hypoxic with a new 6L O2
requirement
Plan:
Acute Respiratory Failure
-Patient with shortness of breath for the last 1.5-2 weeks, nonproductive cough
-Patient on 6L of O2 as of this admission, no supplemental oxygen requirement at baseline
-CT Chest PE on 01/28: No evidence of pulmonary embolism. Trace pleural effusions. Extensive diffuse patchy and confluent airspace opacity noted, bilaterally, most pronounced in the upper and mid lung zones, with relative sparing at the lung bases.
Pulmonary edema versus pneumonia. Mild bilateral hilar and mediastinal adenopathy.
-Patient had recently completed Taxol therapy on 01/14, concern for chemotherapy-induced lung injury
-Suspect chemotherapy-related lung injury
-Goal to wean Oxygen as tolerated, keeping oxygen saturation > 92%
-S/p IV Lasix 20mg
-Appreciate oncology recommendations�they believe that the patient's presentation and imaging was suspicious for taxane induced pneumonitis. Last dose of Taxol was 01/14. Patient given methylprednisone 60 mg IV x2 and is now on prednisone 60mg
daily with plan to taper upon discharge. They have also consulted pulmonology, will appreciate their insight into her case
-Pulmonology recommends outpatient repeat imaging in 6 weeks
-Patiently currently at 2 L nasal cannula oxygen -we will continue to wean the patient down to room air as tolerated.
-Continue scheduled QID DuoNebs on 02/01
-X-ray of the Chest 02/01: The lungs show prominence of the interstitial markings centrally about the karine and both upper lobes. This is stable. No pleural effusion or pneumothorax.
-Continue Ceftriaxone/Azithromycin. May potentially stop on D/c
-Case management aware of new O2 requirement, repeat O2 assessment today with DME likely to arrive at her home tomorrow.
Right breast cancer ER/MN/HER2 positive status postlumpectomy: Stable/monitoring
-Patient with new diagnosis of invasive ductal carcinoma of the breast (ER/MN positive, HER-2 positive) on active treatment
-Follows with Dr. Espinosa at [facility], reportedly finished Taxol therapy on 01/14 and is continuing with Herceptin alone with most recent Herceptin infusion on 01/28 just before ED visit
-Encouraged follow up with Dr. Espinosa upon discharge from the hospital
-Oncology is following, appreciate their insight into her case
S/p Mechanical Fall with Head Strike
-CT of the Head showed no acute intracranial abnormality.
-No complaints today
Essential Hypertension
-Amlodipine, lisinopril/hydrochlorothiazide held
-Will monitor
Anemia: Monitoring
� Likely secondary to malignancy and treatment
Hyponatremia: Resolved
-Sodium normalized on 02/01
History of tobacco use/nicotine dependence: Monitoring
� Patient quit smoking in 08/2024
� Counseling in regards to continued abstinence from smoking provided at the bedside
Thyroid nodules: Stable/monitoring
� Outpatient follow-up
Hypoalbuminemia: Stable/monitoring
Patient's albumin on 01/28/2025 was 3.1, and on 01/29/2025 the patient's albumin was 2.7 -Will continue to monitor
No current indication to replete
CODE STATUS: DO NOT RESUSCITATE
DVT prophylaxis: Heparin subqu
Anticipated Discharge: Within 24 hours
Subjective/Interval History
-
Date of Service: February 02, 2025
Patient was resting in her room when I arrived with at bedside. She has been moving around to the bathroom with supplemental O2 with some labored breaths, but mostly feels unchanged from yesterday. She has not yet tried being off her
supplemental O2 after she tried to do so on Saturday and her O2 saturation decreased to 77s.
Objective Data
-
Labs:
Laboratory Results
02/02/25
04:47
WBC 12.4 H
Hgb 9.1 L
Hct 27.3 L
Plt Count 271
Sodium 137
Potassium 3.6
Chloride 105
Carbon Dioxide 28
BUN 10
Creatinine 0.4 L
Glucose 124 H
Calcium 8.8
Vital Signs:
Vital Signs
Temp Pulse Resp BP Pulse Ox
98.1 F 97 16 118/61 94
02/01/25 23:21 02/01/25 23:21 02/01/25 23:21 02/01/25 23:21 02/01/25 23:21
I&O
02/01/25 02/02/25 02/03/25
06:59 06:59 06:59
Intake Total 1800 / 1800 1480 / 1480
Balance 1800 / 1800 1480 / 1480
Review of Systems
-
History Source: Patient
Constitutional: Denies Fever, Fatigue, Night Sweats or Chills
Respiratory: Reports Cough (Dry) and Trouble Breathing
Cardiac: Denies Chest Pain or Palpitations
Abdomen/GI: Denies Abdominal Pain, Nausea, Vomiting, Diarrhea or Constipated
Neuro: Denies Dizzy or Weakness
Physical Exam
-
General: Well Developed, Well Nourished, No Apparent Distress and Comfortable
HEENT: Normocephalic, Atraumatic and Oxygen (2L)
Respiratory: Crackles
Cardiac: Regular Rhythm and S1/S2
Musculoskeletal: No Edema
Skin: Warm and Dry
Neuro: Awake, Alert and Oriented
Psych: Calm and Intact Judgement/Insight
[2025-02-02] MEDS: DUONEB 3 ML INH ×4 (07:30→20:07)
[2025-02-02] MEDS: DELTASONE 60 MG PO (07:40)
[2025-02-02] MEDS: ZITHROMAX 500 MG PO (07:40)
[2025-02-02] MEDS: PROTONIX 40 MG PO (07:40)
--- NOTE | 2025-02-02 08:25 | W.PN.ONC2 ---
Today's Communication / Plan
-
prednisone per pulmonary
OP follow up with Dr. Francisca eJan will be arranged upon discharge
at bedside provided updates and questions answered
Impression
Impression
- bilateral lung infiltrates
- progressive HALEY with hypoxia
- c/f taxane induced pneumonitis
- TRIPLE positive breast cancer s/p taxol/trastuzumab x 12 cycles on 01/22
-new leukocytosis likey secondary to steroids
Plan
Plan
- clinical presentation and lung appearance on imaging suspicious for taxane induced pneumonitis. DDX bilateral PNA vs. CHF exacerbation however no fevers and non-toxic appearing, cough is non-productive, procalcitonin and BNP normal and so far
limited response to lasix. echo 01/18 without CM, normal EF and GLS.
- last dose of taxol 01/14.
- received methylpred 60 mg IV x 1 on 01/30 and started prednisone 1 mg/kg (60 mg) daily. Appreciate pulmonary assist with steroid management
- on empirical abx, cx negative.
- wean O2 as tolerated.
- will continue to follow.
Subjective/Objective
Subjective
Afebrile, 2L NC
no new complaints
Vital Signs:
Vital Signs
Temp Pulse Resp BP Pulse Ox
98.1 F 97 16 118/61 97
02/01/25 23:21 02/02/25 07:32 02/02/25 07:32 02/01/25 23:21 02/02/25 07:56
Lab Results:
Laboratory Data
WBC 12.4 10^3/uL (4.8-10.8) H 02/02/25 04:47
Hgb 9.1 g/dL (12.0-16.0) L 02/02/25 04:47
Plt Count 271 10^3/uL (130-400) 02/02/25 04:47
eGFR > 60.00 02/02/25 04:47
Physical Exam
HEENT: Moist Mucous Membranes; No Jaundice
Pulmonary: Other (unlabored)
GI: Soft
Extremities: Pulses Present
Orders
Orders
Orders From Last 24 Hours
02/01/25 10:52
PULMONARY CONSULT Routine
--- NOTE | 2025-02-02 09:36 | W.PN.PUL3 ---
Today's Communication / Plan
-
Remains stable on RA, no new complaints
Continue steroid taper, can be for 2-3 weeks w/ plan for short term FU and repeated imaging
Otherwise home O2 eval likely to need home set up
OP FU to be arranged
Discharge planning per team
Assessment
-
69-year-old female past medical history of breast cancer on taxol/trastuzumab, hypertension presenting with fall. She tripped and fell in the parking lot. He was at the infusion center earlier to receive a dose of Herceptin. After leaving the
hospital she tripped on a curb and fell forward. She hit her forehead on pavement. Denies loss of consciousness. She was assisted by bystanders until staff intervened and rapid response was called. She denies any dizziness or weakness. She
reports shortness of breath started few weeks ago with nonproductive cough. CXR/CT obtained with interstitial markings noted, suspect drug-induced pneumonitis.
Drug induced pneumonitis
Abnormal CT chest
Breast cancer
HALEY-progressive
Anemia, Hb 9.5
Hyperglycemia
Impaired fasting glucose
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
US guided Right breast biopsy 08/18/24
Right localized lumpectomy SLN mapping and biopsy 09/11/24
Left port insertion 10/27/24
Hypertension
[place] Teeth
Prediabetes
Thyroid nodule, stable on US 09/2024 (unchanged since 2016)
Vitamin D deficiency
Former smoker, quit 08/2024
Osteoporosis
Cologuard in 2017 was positive, declined colonoscopy (never had)
Plan
No oxygen was needed on admission, currently saturating >90% on RA
Prior history of lung disease is NOT noted --denies prior history
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
I reviewed this with patient
PCT negative
proBNP 142
CXR/CT obtained indicating bilateral symmetric GGOs, pleural sparing
Started on prednisone, continue for now
Eventually will need repeat imaging again in 6 weeks as OP
Prior ECHO results are reviewed indicating normal function
Unlikely HF contributing
She has stopped chemo in the past 2 weeks
Would recommend stopping as well
Heme following
Will need outpatient pulmonary evaluation in our office for PFTs and 6MWT
Reviewed with patient
Discharge planning per team
Diagnostic Data
Chest X-Ray: 02/01/25- Stable pulmonary changes again concerning for pulmonary edema versus pneumonia.
10/27/24- No focal parenchymal opacification, pleural effusion or pneumothorax.
CT Scan: CHEST 01/28/25- Extensive diffuse patchy and confluent airspace opacity noted, bilaterally, most pronounced in the upper and mid lung zones, with relative sparing at the lung bases.
Echo: 01/18/25- 1. Left ventricular ejection fraction is normal with an ejection fraction of 60 % by Sr's biplane method of discs.
2. Compared to a prior transthoracic echocardiogram study from 10/13/2024 Global strain was -21.1% from prior study and is -20.5% on current study no significant changes are seen.
3. Global strain -20.5%.
4. Mild concentric left ventricular hypertrophy.
PFT's:
Reports and relevant images were personally reviewed.
Total time spent on this consultation __45__ minutes which includes review of history, physical exam, medications, laboratory data, personal review of imaging, extensive review of outpatient records, discussion with care team and respiratory therapy.
Subjective Data
-
Date of Service:
Date of Service: February 02, 2025
Chief Complaint: Pulmonary Follow Up
Subjective:
No new complaints, feeling slightly better
Some tremors but overall mild
Objective Data
Data Reviewed
Vital Signs / I&O / Oxygen:
Vital Signs
Temp Pulse Resp BP Pulse Ox
98.2 F 97 16 118/65 97
02/02/25 07:00 02/02/25 07:32 02/02/25 07:32 02/02/25 07:00 02/02/25 07:56
Intake and Output
02/01/25 02/02/25 02/03/25
06:59 06:59 06:59
Intake Total 1800 / 1800 1480 / 1480
Balance 1800 / 1800 1480 / 1480
SaO2 97
Nasal Cannula flow liters per 2
minute
Physical Exam
General: Comfortable and Other (NAD)
HEENT: Normocephalic, Anicteric and Moist Mucous Membranes
Cardiovascular: S1-S2 and Regular Rhythm
Respiratory: Crackles and Non-Labored Respirations
GI: Soft, Non Distended and Non Tender
Neurology: Awake, Alert, Oriented and No Motor Deficits
Skin: Warm, Dry and Good Color
Labs/Micro/Reports
Lab Data
02/02/25 04:47
02/02/25 04:47
[2025-02-02] MEDS: ROCEPHIN 1000 MG IV (11:04)
[2025-02-02] MEDS: STERILE WATER FOR INJECTION 10 ML IV (11:04)
--- NOTE | 2025-02-02 12:23 | CM ---
Reviewed the chart notes and spoke with the patient at the bedside. IMM reviewed. Discussed home O2. [employer] selected. Order faxed and tank delivered to room. CM continues to be available to patient/family and is monitoring medical plan for
needs at discharge.
Plan: Discharge to home when medically stable. Spouse will provide transportation.
[2025-02-02 15:00] VITALS: BP 108/64
[2025-02-02] MEDS: LOVENOX 40 MG SC (17:13)
[2025-02-02 23:30] VITALS: BP 126/83
[2025-02-03 05:58] LABS: Hematocrit 29.2 % (37.0-47.0); Hemoglobin 9.5 g/dL (12.0-16.0); Mean Corp Hgb Conc. 32.5 g/dL (33.0-37.0); Mean Corpuscular Volume 89.0 fL (81.0-99.0); Platelet Count 297 10^3/uL (130-400); Red Cell Dist. Width 16.8 % (11.5-14.5)
[2025-02-03 06:17] LABS: Blood Urea Nitrogen 10 mg/dl (7-17); Calcium 8.7 mg/dl (8.4-10.2); Carbon Dioxide 28 mmol/L (22-30); Chloride 106 mmol/L (98-107); Estimated Creatinine Clearance 68 ml/min; Glucose 65 mg/dl (70-99); Potassium 4.2 mmol/L (3.5-5.1); Sodium 138 mmol/L (135-145); eGFR > 60.00
[2025-02-03 07:00] VITALS: BP 151/79
[2025-02-03] MEDS: DUONEB 3 ML INH ×2 (07:42→11:26)
--- NOTE | 2025-02-03 07:51 | W.PN.HOSP.TC ---
Addendum entered and electronically signed by Benedicto Wallis MD 02/03/25 13:34:
I saw and evaluated the patient. I reviewed the resident�s note and agree with findings and plan as documented in the resident�s note.
Plan reviewed together
Patient was feeling better still requiring oxygen
Exam still has few rales bilateral chest
Continue steroid taper complete antibiotics 5-day course
She is aware that she needs to put imaging as outpatient
Hydrochlorothiazide discontinued secondary to hyponatremia
Continue lisinopril oxygen arranged
More than 30 minutes spent in discharge including
Final examination of the patient
Summarizing hospital stay
Instructions for continuing care to all relevant caregivers
Preparation of discharge records, prescriptions, and referral forms
Original Note:
Today's Communication/Plan
-
Discharge planning
Assessment / Plan
Assessment / Plan
Assessment:
This is a 69 y/o female with pmhx of invasive ductal carcinoma of the breast (ER/[place] positive, HER-2 positive) on active treatment, essential hypertension who presented to the ED following a fall and was found to be hypoxic with a new 6L O2
requirement.
Plan:
Acute Respiratory Failure
Leukocytosis
-Patient with shortness of breath for the last 1.5-2 weeks, nonproductive cough
-Patient on 6L of O2 as of this admission, no supplemental oxygen requirement at baseline
-CT Chest PE on 01/28: No evidence of pulmonary embolism. Trace pleural effusions. Extensive diffuse patchy and confluent airspace opacity noted, bilaterally, most pronounced in the upper and mid lung zones, with relative sparing at the lung bases.
Pulmonary edema versus pneumonia. Mild bilateral hilar and mediastinal adenopathy.
-Patient had recently completed Taxol therapy on 01/14, concern for chemotherapy-induced lung injury
-Suspect chemotherapy-related lung injury
-Goal to wean Oxygen as tolerated, keeping oxygen saturation > 92%
-S/p IV Lasix 20mg
-Appreciate oncology recommendations�they believe that the patient's presentation and imaging was suspicious for taxane induced pneumonitis. Last dose of Taxol was 01/14. Patient given methylprednisone 60 mg IV x2 and is now on prednisone 60mg
daily with plan to taper upon discharge. They have also consulted pulmonology, will appreciate their insight into her case
-Pulmonology recommends outpatient repeat imaging in 6 weeks
-WBC increased to 12 on 02/01, has remained stable since then, likely inflammatory as her symptoms have not changed and she remains fever free.
-Patiently currently at 2 L nasal cannula oxygen -we will continue to wean the patient down to room air as tolerated.
-Continue scheduled QID DuoNebs on 02/01
-X-ray of the Chest 02/01: The lungs show prominence of the interstitial markings centrally about the karine and both upper lobes. This is stable. No pleural effusion or pneumothorax.
-Continue Ceftriaxone/Azithromycin. On discharge will complete 5 day total course with Cefdinir 300mg BID and Azithromycin 500mg QD ending on 02/04.
-Case management aware of new O2 requirement, repeat O2 assessment was performed on 02/02, plan to discharge today once oxygen concentrator arrives at home
Right breast cancer ER/[place]/HER2 positive status postlumpectomy: Stable/monitoring
-Patient with new diagnosis of invasive ductal carcinoma of the breast (ER/[place] positive, HER-2 positive) on active treatment
-Follows with Dr. Espinosa at [facility], reportedly finished Taxol therapy on 01/14 and is continuing with Herceptin alone with most recent Herceptin infusion on 01/28 just before ED visit
-Encouraged follow up with Dr. Espinosa upon discharge from the hospital
-Oncology is following, appreciate their insight into her case
S/p Mechanical Fall with Head Strike
-CT of the Head showed no acute intracranial abnormality.
-No complaints today
Essential Hypertension
-Amlodipine, lisinopril/hydrochlorothiazide held, resume on d/c
-Will monitor
Anemia: Monitoring
� Likely secondary to malignancy and treatment
Hyponatremia: Resolved
-Sodium normalized on 02/01
History of tobacco use/nicotine dependence: Monitoring
� Patient quit smoking in 08/2024
� Counseling in regards to continued abstinence from smoking provided at the bedside
Thyroid nodules: Stable/monitoring
� Outpatient follow-up
Hypoalbuminemia: Stable/monitoring
-Patient's albumin on 01/28/2025 was 3.1, and on 01/29/2025 the patient's albumin was 2.7 -Will continue to monitor
-No current indication to replete
CODE STATUS: DO NOT RESUSCITATE
DVT prophylaxis: Heparin subqu
Anticipated Discharge: Today
Subjective/Interval History
-
Date of Service: February 03, 2025
Patient is doing well today. She states she feels a little better each day, and a little stronger each day. She is excited to go home. Her (who is at their house) will call her once the Oxygen Concentrator has arrived. He will be providing
transport to her home. She continues to be free of fevers, chills, productive cough.
Objective Data
-
Labs:
Laboratory Results
02/03/25
05:22
WBC 12.7 H
Hgb 9.5 L
Hct 29.2 L
Plt Count 297
Sodium 138
Potassium 4.2
Chloride 106
Carbon Dioxide 28
BUN 10
Creatinine 0.5 L
Glucose 65 L
Calcium 8.7
Vital Signs:
Vital Signs
Temp Pulse Resp BP Pulse Ox
97.6 F 102 18 126/83 95
02/02/25 23:30 02/03/25 07:46 02/03/25 07:46 02/02/25 23:30 02/03/25 07:46
I&O
02/02/25 02/03/25 02/04/25
06:59 06:59 06:59
Intake Total 1480 / 1480 1770 / 1770
Balance 1480 / 1480 1770 / 1770
Review of Systems
-
History Source: Patient
Constitutional: Denies Fever, Fatigue, Night Sweats, Chills or Weakness
Respiratory: Reports Cough (Dry) and Trouble Breathing
Cardiac: Denies Chest Pain or Palpitations
Abdomen/GI: Denies Abdominal Pain, Nausea, Vomiting or Diarrhea
Neuro: Denies Dizzy or Weakness
Physical Exam
-
General: Well Developed, Well Nourished, No Apparent Distress and Comfortable
HEENT: Oxygen (2L)
Respiratory: Crackles (Primarily at the bases bilaterally)
Cardiac: Regular Rhythm and S1/S2
Musculoskeletal: No Edema
Skin: Warm and Dry
Psych: Calm
--- NOTE | 2025-02-03 07:51 | W.DCSUMMARY ---
Discharge Summary
Discharge Data
Date of Admission: 01/29/25
Date of Discharge: 02/03/25
-
Pending Results: No
Hospital Course
Discharging Physician : Dr. Wallis
Disposition : Good
Primary care physician : TRE Ritter
Principal Discharge diagnosis : Acute Respiratory Failure
Chronic Discharge diagnosis : Right breast cancer ER/[place]/HER2 positive, Essential Hypertension
Hospital Course :
This is a 69 y/o female with pmhx of invasive ductal carcinoma of the breast (ER/[place] positive, HER-2 positive) on active treatment, essential hypertension who presented to the ED following a fall. She is a patient of [facility] with
[facility]. By her report, she was diagnosed with breast cancer in 2024, and finished treatment with Taxol on 01/14 and is now on Herceptin. She is a former smoker, having smoked 1ppd until earlier this year.
Of note, for the last 1-2 weeks she has been feeling more short of breath with a nonproductive cough. She has been free of fevers and chills. On 01/28 she had been seen at the Infusion Center to received Herceptin when she tripped over a curb and
fell forward, striking her head on the pavement. She was assisted by bystanders until a rapid response was called and she was brought into the Emergency Department.�
In the ED her hemoglobin was 10.7 with a normal WBC of 8.9. A D-Dimer was checked and was elevated at 1.25. Her sodium was low at 128, and her total protein and albumin were low at 5.[address] scan of her head showed no acute
intracranial abnormalities. A CT PE of her chest showed no evidence of pulmonary embolism. Trace pleural effusions. Extensive diffuse patchy and confluent airspace opacity noted bilaterally, most pronounced in the upper and mid lung zones with
relative sparing at the lung bases. Pulmonary Edema vs Pneumonia. Mild bilateral and mediastinal adenopathy. She was given Ceftriaxone and Azithromycin and admitted to the hospital. On 01/29, she was on a maximum of 6L of supplemental oxygen which
was weaned during the course of the day. She was also given two doses of 20mg IV Lasix with limited response and lozenges for her dry cough.
On 01/30 she was given methylprednisone 60mg IV x1 and prednisone 60mg on 01/31. Her Oxygen requirement was weaned down to 2L over the weekend. She received scheduled DuoNebs on 02/01, and a chest X-ray revealed stable findings compared to the CT of
her chest. Her hyponatremia resolved. On 02/02 she continued to improve, though still was with 2L Oxygen requirement so case management arranged for Oxygen concentrator to be delivered to her home. On 02/03 she was found to be medically stable and was
discharged to home with a steroid taper in place for 20 days (50mg x4, 40mg x4, 30mg x4, 20mg x4, 10mg x4), one more day of antibiotics for a total course of 5 days. Her lisinopril-hydrochlorothiazide was changed to just lisinopril in light of
hyponatremia on admission. She is to follow up with her PCP in less than 1 week, and follow up with pulmonology in 2-3 weeks. Pulmonology recommends repeat CT of the chest in 6 weeks.
Important imaging findings :
CT PE Chest 01/28: No evidence of pulmonary embolism. Pulmonary artery branching order level of the most proximal pulmonary embolism: N/A Trace pleural effusions. Extensive diffuse patchy and confluent airspace opacity noted, bilaterally, most
pronounced in the upper and mid lung zones, with relative sparing at the lung bases. Pulmonary edema versus pneumonia. Mild bilateral hilar and mediastinal adenopathy. If the patient has emphysema, patient should be assessed for an annual low dose
lung cancer CT program, as pulmonary emphysema is an independent risk factor for lung cancer.
Chest X-ray 02/01: Stable pulmonary changes again concerning for pulmonary edema versus pneumonia.
Procedure findings : N/a
Discharge Plan
-
Patient Disposition: Home (Routine Discharge)
Discharge Diagnosis/Procedures: Acute Respiratory Failure
Leukocytosis
Right breast cancer ER/[place]/HER2 positive
S/p Mechanical Fall
Essential Hypertension
Condition: Good
Diet: No restrictions
Activity: No restrictions
Driving Restrictions: As prior to admission
Bathing Restrictions: None
Others Tests: CT scan of Chest in 6 weeks
Referrals:
Shell Stauffer, [Active, Pulmonary Medicine] - in two to three weeks
Referral Note: w/ PFT
Kishor Saunders CRNP [Family Provider] - in less than 1 week
Additional Discharge Medication Instructions: Thank you for visiting [facility].
We are discharging you home on supplemental oxygen. You should aim to wean yourself from this new oxygen requirement as tolerated, keeping your oxygen saturation over 92%.
Please follow up with your c4 planner in 2-3 weeks. You should have a repeat CT scan of your chest in around 6 weeks.
We are discharging you from the hospital with a 20-day steroid taper of Prednisone. Each single tablet is 10mg.
You should take 5 tablets (50mg) by mouth once daily for 4 days.
Then take 4 tablets (40mg) by mouth once daily for 4 days.
Then take 3 tablets (30mg) by mouth once daily for 4 days.
Then take 2 tablets (20mg) by mouth once daily for 4 days.
Then take 1 tablets (10mg) by mouth once daily for 4 days.
We are also sending you home with a short course of antibiotics.
Please take on tablet of Azithromycin 500mg tomorrow morning.
Please take cefdinir 300mg tonight, tomorrow morning, and tomorrow evening.
Prescriptions:
New
prednisone 10 mg Tablet
10 mg PO DIRECTED Qty: 60 0RF
Rx Instructions:
50 mg x4 days, 40 mg x4 days,
30 mg x4 days, 20 mg x4 days,
10 mg x4 days
azithromycin 500 mg tablet
500 mg PO DAILY Qty: 1 0RF
cefdinir 300 mg capsule
300 mg PO BID Qty: 3 0RF
lisinopril 20 mg tablet
20 mg PO DAILY Qty: 30 0RF
Continued
amlodipine 5 mg Tablet
5 mg PO QPM
naproxen sodium [Aleve] 220 mg Tablet
220 mg PO BID PRN (Reason: pain)
Vitamin C
1 dose PO DAILY
Vitamin D3
1 dose PO DAILY
cyanocobalamin (vitamin B-12)
1 dose PO DAILY
magnesium
1 dose PO DAILY
vitamin K
1 dose PO DAILY
zinc
1 dose PO DAILY
Discontinued
lisinopril-hydrochlorothiazide 20-25 mg Tablet
1 tab PO QPM
Discharge Orders:
Discharge Patient (As Directed); Ordered 02/03/25
Ordered By: Mariela Johnson
Discharge Date and Time
Print Language: TURKISH
[2025-02-03] MEDS: DELTASONE 60 MG PO (08:43)
[2025-02-03] MEDS: PROTONIX 40 MG PO (08:43)
[2025-02-03] MEDS: ZITHROMAX 500 MG PO (08:43)
--- NOTE | 2025-02-03 09:32 | W.PN.PUL3 ---
Today's Communication / Plan
-
Doing well, stable on RA
Continue prednisone, slow taper
OP FU recommended, we will arrange
Discharge planning per team
Assessment
-
69-year-old female past medical history of breast cancer on taxol/trastuzumab, hypertension presenting with fall. She tripped and fell in the parking lot. He was at the infusion center earlier to receive a dose of Herceptin. After leaving the
hospital she tripped on a curb and fell forward. She hit her forehead on pavement. Denies loss of consciousness. She was assisted by bystanders until staff intervened and rapid response was called. She denies any dizziness or weakness. She
reports shortness of breath started few weeks ago with nonproductive cough. CXR/CT obtained with interstitial markings noted, suspect drug-induced pneumonitis.
Drug induced pneumonitis
Abnormal CT chest
Breast cancer
HALEY-progressive
Anemia, Hb 9.5
Hyperglycemia
Impaired fasting glucose
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
US guided Right breast biopsy 08/18/24
Right localized lumpectomy SLN mapping and biopsy 09/11/24
Left port insertion 10/27/24
Hypertension
[place] Teeth
Prediabetes
Thyroid nodule, stable on US 09/2024 (unchanged since 2016)
Vitamin D deficiency
Former smoker, quit 08/2024
Osteoporosis
Cologuard in 2017 was positive, declined colonoscopy (never had)
Plan
No oxygen was needed on admission, currently saturating >90% on RA
Prior history of lung disease is NOT noted --denies prior history
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
I reviewed this with patient
PCT negative
proBNP 142
CXR/CT obtained indicating bilateral symmetric GGOs, pleural sparing
Started on prednisone, continue for now
Eventually will need repeat imaging again in 6 weeks as OP
Prior ECHO results are reviewed indicating normal function
Unlikely HF contributing
She has stopped chemo in the past 2 weeks
Would recommend stopping as well
Heme following
Will need outpatient pulmonary evaluation in our office for PFTs and 6MWT
Reviewed with patient
Discharge planning per team
Diagnostic Data
Chest X-Ray: 02/01/25- Stable pulmonary changes again concerning for pulmonary edema versus pneumonia.
10/27/24- No focal parenchymal opacification, pleural effusion or pneumothorax.
CT Scan: CHEST 01/28/25- Extensive diffuse patchy and confluent airspace opacity noted, bilaterally, most pronounced in the upper and mid lung zones, with relative sparing at the lung bases.
Echo: 01/18/25- 1. Left ventricular ejection fraction is normal with an ejection fraction of 60 % by Sr's biplane method of discs.
2. Compared to a prior transthoracic echocardiogram study from 10/13/2024 Global strain was -21.1% from prior study and is -20.5% on current study no significant changes are seen.
3. Global strain -20.5%.
4. Mild concentric left ventricular hypertrophy.
PFT's:
Reports and relevant images were personally reviewed.
Total time spent on this consultation __45__ minutes which includes review of history, physical exam, medications, laboratory data, personal review of imaging, extensive review of outpatient records, discussion with care team and respiratory therapy.
Subjective Data
-
Date of Service:
Date of Service: February 03, 2025
Chief Complaint: Pulmonary Follow Up
Subjective:
Doing well today, improving
Stable on RA, no new complaints
Ready to go home
Objective Data
Data Reviewed
Vital Signs / I&O / Oxygen:
Vital Signs
Temp Pulse Resp BP Pulse Ox
97.4 F 102 18 151/79 95
02/03/25 07:00 02/03/25 07:46 02/03/25 07:46 02/03/25 07:00 02/03/25 07:46
Intake and Output
02/02/25 02/03/25 02/04/25
06:59 06:59 06:59
Intake Total 1480 / 1480 1769
Balance 1480 / 1480 1769
SaO2 95
Nasal Cannula flow liters per 2
minute
Physical Exam
General: Comfortable and Other (NAD)
HEENT: Normocephalic, Anicteric and Moist Mucous Membranes
Cardiovascular: S1-S2 and Regular Rhythm
Respiratory: Crackles (R base to mid lung, clear on L) and Non-Labored Respirations
GI: Soft, Non Distended and Non Tender
Neurology: Awake, Alert, Oriented and No Motor Deficits
Skin: Warm, Dry and Good Color
Labs/Micro/Reports
Lab Data
02/03/25 05:22
02/03/25 05:22
--- NOTE | 2025-02-03 10:15 | CM ---
Reviewed the chart notes. [employer] delivered portable O2 tank yesterday. Per patient's spouse, [employer] will be delivering concentrator today. CM continues to be available to patient/family and is monitoring medical plan for needs at discharge.
Plan: Discharge to home when medically stable. Patient's spouse to provide transportation.
[2025-02-03] MEDS: ROCEPHIN 1000 MG IV (12:26)
[2025-02-03] MEDS: STERILE WATER FOR INJECTION 10 ML IV (12:26)
[2025-02-03 13:37] VITALS: BP 145/91
== END 2025-02-03 14:02 | disposition home or self-care (01) | DRG 196 ==
LOC: 2 NORTH 07:20
PROVIDERS: Family Medicine; Nurse Practitioner; ADMITTING PHYSICIAN Hospitalist; ATTENDING PHYSICIAN Hospitalist; CONSULT PHYSICIAN Internal Medicine; CONSULT PHYSICIAN Internal Medicine Hematology & Oncology; EMERGENCY PHYSICIAN Emergency Medicine
DX: J84.89 Other specified interstitial pulmonary diseases (principal); J18.9 Pneumonia, unspecified organism; J96.01 Acute respiratory failure with hypoxia; E87.1 Hypo-osmolality and hyponatremia; J98.4 Other disorders of lung; M81.0 Age-related osteoporosis without current pathological fracture; I10 Essential (primary) hypertension; Z66 Do not resuscitate; C50.911 Malignant neoplasm of unspecified site of right female breast; Z92.21 Personal history of antineoplastic chemotherapy; Z87.891 Personal history of nicotine dependence; Z11.52 Encounter for screening for COVID-19; Z17.0 Estrogen receptor positive status [ER+]; Z17.21 Progesterone receptor positive status; Z17.31 Human epidermal growth factor receptor 2 positive status; Z85.3 Personal history of malignant neoplasm of breast
CPT/HCPCS: 70450; 71046; 71275; 80048; 80053; 82607; 82728; 83036; 83540; 83550; 83880; 84145; 85025; 85027; 85379; 86803; 87502; 87811; 93005; 94640; 94761; 96361; 96365; 96375; 99285; 99406; Q9967

== ENCOUNTER → 2025-03-10 13:20 | Outpatient (REF) | payer MEDICARE, OTHER, SELFPAY | LOC: RAD 13:20 | PROVIDERS: ATTENDING PHYSICIAN Nurse Practitioner Adult Health | DX: R09.02 Hypoxemia (principal); J18.9 Pneumonia, unspecified organism; J98.4 Other disorders of lung | CPT/HCPCS: 71260; Q9967 ==

== ENCOUNTER → 2025-03-17 13:39 | Outpatient (REF) | payer MEDICARE, OTHER, SELFPAY | LOC: PAVMRI 13:39 | DX: M89.9 Disorder of bone, unspecified (principal) | CPT/HCPCS: 72146 ==

== ENCOUNTER → 2025-04-15 07:03 | Outpatient (REF) | payer MEDICARE, OTHER, SELFPAY | LOC: HWRAD 07:03 | PROVIDERS: ATTENDING PHYSICIAN Internal Medicine Hematology & Oncology | DX: M81.0 Age-related osteoporosis without current pathological fracture (principal) | CPT/HCPCS: 77080 ==

== ENCOUNTER → 2025-04-23 11:46 | Outpatient (REF) | payer MEDICARE, OTHER, SELFPAY ==
[2025-04-23 12:40] VITALS: BP 152/76; BP_SYST 95
== END ==
LOC: RADI 11:46
PROVIDERS: ATTENDING PHYSICIAN Nurse Practitioner Adult Health; OTHER PHYSICIAN Internal Medicine Hematology & Oncology
DX: T82.594A Other mechanical complication of infusion catheter, initial encounter (principal); Y82.8 Other medical devices associated with adverse incidents; C50.919 Malignant neoplasm of unspecified site of unspecified female breast
CPT/HCPCS: 36598